=== PATIENT | male | born 1965 | race Caucasian/White ===

== ENCOUNTER 2017-03-04 23:59 | Inpatient (IN) ==
[2017-03-05] MEDS ORDERED: Naloxone 0.4 MG/ML INJ IVP ONE (00:20)
[2017-03-05] MEDS ORDERED: Ondansetron 4 MG/2 ML VIAL IVP PRN ×2 (00:35→00:51)
[2017-03-05] MEDS ORDERED: Ondansetron 4 MG/2 ML VIAL ONE (00:36)
[2017-03-05] MEDS ORDERED: Naloxone 0.4 MG/ML INJ IVP PRN (00:51)
[2017-03-05] MEDS ORDERED: *HR* Promethazine 25 MG/ML VIAL IVP PRN (00:51)
[2017-03-05] MEDS ORDERED: Ipratropium/Albuterol Neb 3 ML IH PRN (01:00)
[2017-03-05 01:49] LABS: Basophils % 0.3 %; Eosinophils % 0.1 %; Hematocrit 27.2 % (37.5-50.1); Hemoglobin 9.2 g/dL (12.9-16.9); Immature Granulocytes % 0.4 % (0-4); Immature Platelets 1.8 % (1.1-6.1); Lymphocytes # 1.4 K/mcL (0.6-4.6); Lymphocytes % 9.6 %; Mean Corpuscular HGB Conc 33.8 g/dL (31.6-35.5); Mean Corpuscular Hemoglobin 28.8 pg (28.0-33.3); Mean Platelet Volume 8.8 fL (9.4-12.4); Monocytes # 1.3 K/mcL (0.0-1.3); Monocytes % 8.4 %; Neutrophils # 12.1 K/mcL (1.6-8.9); Platelet Count 320 K/mcL (140-400); Red Cell Distribution Width 13.8 % (11.5-14.5); Segmented Neutrophils % 81.2 %
[2017-03-05 01:55] LABS: ABG Base Excess -8 mEq/L (-2 to 3); ABG HCO3 18 mEq/L (21-27); ABG Oxygen Saturation 88 % (95-98); ABG PCO2 34 mmHg (35-45); ABG PH 7.32 pH Units (7.32-7.45); ABG PO2 59 mmHg (85-104); ABG TCO2 19 mEq/L (20-26)
[2017-03-05 02:11] LABS: Calcium 8.6 mg/dL (8.6-10.3); Magnesium 1.9 mg/dL (1.6-2.6); Potassium 4.8 mEq/L (3.5-5.1)
--- NOTE | 2017-03-05 02:29 | Internal Med History&Physical ---
Date of Encounter: 03/05/17 Time of Encounter: 01:00 Assessment and Plan (1) Altered mental status Current visit: Yes Status: Acute Pt has AMS. Pt has positive urine screen to opioid and oxycodone. Pt respond to narcan, but shows some withdraw symptoms with narcan we give in our hospital. Pt has patent airway and can be wake up now. - Will place pt on close monitoring in ICU bed, possible intubation for airway protection if AMS is getting worse. - Pt move 4 limbs and denies headache when wake-up. - Check ammonia, TSH, and Vit B12 level as well. Qualifiers: Altered mental status type: disorientation Qualified Code(s): R41.0 - Disorientation, unspecified (2) GI bleed Current visit: Yes Status: Acute Pt has drop of Hgb with positive FOBT. Currently vitals stable. - Cont monitor vitals and H/H - NPO, IVF - Protonix drip - Consult surgery for possible scopes Qualifiers: GI bleed type/associated pathology: unspecified gastrointestinal hemorrhage type Qualified Code(s): K92.2 - Gastrointestinal hemorrhage, unspecified (3) DVT prophylaxis Current visit: Yes Status: Acute EPCD, no AC b/o GI bleed (4) Acute renal failure Current visit: No Status: Acute Cr level increased to 2.4 from baseline 0.8. Pt has N/V and diarrhea, consider possibly prerenal LUCILA. - Cont IVF, F/U renal function, avoid nephrotoxic medications. - US renal to r/o obstruction. - Pt is on Sanchez, monitor urine output. Qualifiers: Acute renal failure type: unspecified Qualified Code(s): N17.9 - Acute kidney failure, unspecified (5) Hyponatremia Current visit: No Status: Acute Sodium 124. Pt has psych hx on some psych meds. Most likely due to psych polydypsia. However, pt shows dehydration now, will cont 0.9NS iv. - Closely monitor sodium level, goal of correction is 8-10 mEq within first 24 hours. (6) Dehydration Current visit: No Status: Acute Cont IVF. (7) Opiate overdose Current visit: No Status: Acute Closely monitor pt, at this point pt can be wake up. Hold intubation. Qualifiers: Encounter type: initial encounter Injury intent: accidental or unintentional Qualified Code(s): T40.601A - Poisoning by unspecified narcotics , accidental (unintentional), initial encounter (8) Nausea & vomiting Current visit: Yes Status: Acute Etiology undetermined. Abd exam is benign. Will cont symptomatic treatment. Qualifiers: Vomiting type: unspecified Vomiting Intractability: unspecified Qualified Code(s): R11.2 - Nausea with vomiting, unspecified Internal Medicine - H&P: HPI Chief complaint: Altered mental status Admitted From: Home Plans for Post Hospital Care: Home History of present illness: Mr. Velázquez is a 52 year old male with unclear PMH present to [facility] for drowsy and AMS. Pt was found positive with opioid and oxycodone. He was treated with Narcan x 3 in [facility], Pt is more awake alert after treatment but get to drowsy again laterly. When I saw pt in our floor, he can be wake up by verbal stimulation, denies headache, chest pain, can move four limbs w/o obvious deficit. However, it is difficult to get more information from pt. Per [facility] documentation, pt has SOB, nausea, and vomiting, and diarrhea at home. He was also found low Hgb in ER, which is 9.5 and which was 13.0 in September 12. Pt was found LUCILA and FOBT positive. He was transferred to our hospital for further management. Past Med Surg Social Fam HX - Past Medical History Medical history: COPD, hyperlipidemia, hypertension, seizures, other Psychiatric history: anxiety, bipolar, depression - Past Surgical History Surgical History: orthopedic, other, other - Social History Smoking Status: Current some day smoker Smokeless Tobacco Status: Yes (snuff) Alcohol use: occasionally Drug use: prescription drug abuse - Family History Mother Living Status: Hx Family Cancer: Yes (lung) Internal Medicine - H&P: Meds ALPRAZolam [Xanax 0.5 MG Tablet] 1 mg PO QID 10/19/14 [History] Atorvastatin [Lipitor] 40 mg PO HS 10/19/14 [History] Diltiazem CD (24hr) [Cardizem CD] 300 mg PO DAILY 10/19/14 [History] [place] Carbonate ER [Lithobid] 600 mg PO BID 10/19/14 [History] OxyCODONE Immed Rel [Roxicodone 15 MG] 15 mg PO Q4HR 10/19/14 [History] Paroxetine [Paxil] 60 mg PO DAILY 10/19/14 [History] Tiotropium [Spiriva] 1 mcg AER DAILY 10/19/14 [History] Albuterol Sulfate [Proair Hfa] 1 puff IH PRN PRN 06/10/15 [History] BuPROPion SR (12 HR) [Wellbutrin SR] 300 mg PO HS 06/10/15 [History] Pantoprazole Sodium [Protonix] 40 mg PO QAM 06/10/15 [History] Lisinopril-HCTZ 20-12.5 [Prinzide 20-12.5] 1 tab PO DAILY 09/15/15 [History] Albuterol Sulfate [Albuterol Inhaler] 1 - 2 puff IH Q6HR PRN #1 hfa.aer.ad 03/02 [Rx] 3 Allergy/AdvReac Type Severity Reaction Status Date / Time cephalexin [From Keflex] Allergy Anaphylaxis Verified 03/02/16 16:30 Latex, Natural Rubber Allergy Hives Verified 03/02/16 16:30 All Systems PM: A 10-system review of systems was performed and is negative for pertinent findings except as documented above in the HPI. - Constitutional Vitals: Temp Pulse Resp BP Pulse Ox 98.6 F 82 18 142/84 90 03/05/17 01:49 03/05/17 02:00 03/05/17 02:00 03/05/17 02:00 03/05/17 02:00 General appearance: Present: A&O X 0, no acute distress Exam: Sleepy, can be waken up by verbal stimulation. - Head Head exam: Present: atraumatic, normocephalic - Eye Eye exam: Present: PERRL, conjuntiva pink, sclera anicteric Pupils: Present: PERRL - Neck Neck exam general surgery: Present: supple, trachea midline. Absent: lymphadenopathy - Respiratory Respiratory exam: Present: CTAB. Absent: accessory muscle use, rales, rhonchi, wheezes - Cardiovascular Cardiovascular exam: Present: RRR, +S1, +S2. Absent: diastolic murmur, gallop, rubs, systolic murmur - GI/Abdominal GI/Abdominal exam: Present: normal bowel sounds, soft, no peritoneal signs. Absent: distended, tenderness - Extremities Exam Extremities exam: Present: warm, radial pulses palpable and symmetrical. Absent : calf tenderness, cyanotic, pedal edema - Neurological Exam Neurological exam: Present: CN II-XII intact, no focal deficits. Absent: facial droop, speech deficit - Skin Skin exam: Present: dry, intact Internal Med - H&P Results - Labs CBC & Chem 7: 03/05/17 01:40 03/05/17 01:40 Labs: Short CBC 03/05/17 Range/Units 01:40 WBC 15.0 H (4.3-11.1) K/mcL Hgb 9.2 L (12.9-16.9) g/dL Hct 27.2 L (37.5-50.1) % Plt Count 320 (140-400) K/mcL Neutrophils # 12.1 H (1.6-8.9) K/mcL BMP 03/05/17 01:40 Sodium 124 L Potassium 4.8 Chloride 102 Carbon Dioxide 16 L BUN 32 H Creatinine 2.31 H Glucose 108 H Calcium 8.6 - ABG Interpretation ABG results: 03/05/17 01:51 ABG pH 7.32 ABG pCO2 34 L ABG pO2 59 L ABG HCO3 18 L ABG Total CO2 19 L ABG O2 Saturation 88 L ABG Base Excess -8 L - EKG Data -: EKG Interpreted by Myself EKG shows normal: sinus rhythm Rate: normal, tachycardia
[2017-03-05] MEDS: Pantoprazole 80 MG in 0.9 % Sodium Chloride 250 ML IVC SCH ×2 (02:45→14:33)
[2017-03-05] MEDS: 0.9 % Sodium Chloride 1,000 ML IVC SCH ×2 (02:45→10:35)
[2017-03-05] MEDS: Ipratropium/Albuterol Neb 3 ML IH SCH ×4 (04:10→21:43)
[2017-03-05 07:18] LABS: Hematocrit 27.8 % (37.5-50.1); Hemoglobin 9.3 g/dL (12.9-16.9)
[2017-03-05 09:13] LABS: Potassium 5.1 mEq/L (3.5-5.1)
--- NOTE | 2017-03-05 11:39 | Event Note ---
Date of Encounter: 03/05/17 Time of Encounter: 11:25 Patient is a 52y/o male who is transferred from [facility] for management of AMS and UGIB. Pt was further found to have acute renal failure, normal anion gap metabolic acidosis His mental status has improved compared to previous day. Easily arousable, AAO x 3 No recurrent episodes of acute bleeding reported. Pt was noted to have positive stool occult at [facility] with pt's history of dark tarry stools H&H low but acceptable Noted to have hyponatremia in addition to worsening of renal function Will hold all sedative agents at this time noted to have bicarb deficit of 6.56 amps will start on bicarb drip (3amp in D5W run at 100cc/hr) closely monitor Na levels, q8h, goal correction 6-8meq in 24 hours Closely monitor H&H q12h Surgery evaluation requested for positive stool occult. continue Protonix gtt at this time will start clear liquid diet Restarted pt's home medications labs and vitals reviewed.
--- NOTE | 2017-03-05 12:36 | General Surgery Consult Note ---
Date of Encounter: 03/05/17 Time of Encounter: 12:30 Assessment and Plan (1) Guaiac positive stools Current Visit: Yes Status: Acute The patient has a combination of mild anemia with guaiac positive stools. He has a clear indication for EGD and colonoscopy. I would prefer that his hyponatremia be fully treated and he be free of opioids prior to sedation and endoscopic evaluation of the GI tract. I will be glad to see him as an outpatient to arrange endoscopic evaluation. History of Present Illness Consult date: 03/05/17 Reason for consult: other History of present illness: The patient initially presented with mental status changes. He was positive for opioids and oxycodone by urine drug screen. He responded to Narcan. During evaluation today, the patient demonstrates hyperactivity and difficulty concentrating. He is alert and oriented times 3. It was noted that he had a hemoglobin of 9.2. He states that he has intermittent vomiting at home but no evidence of hematemesis. He has intermittent small volume rectal bleeding usually with visible blood on his toilet paper. There is no high-volume rectal bleeding with clots. There is no hematochezia or melena. He denies any blood loss area he is currently under therapy for hyponatremia and opioid use. I would recommend an outpatient EGD and colonoscopy after the patient has recovered and his hyponatremia has been successfully addressed. There is no indication for emergent endoscopic evaluation of the GI tract. Conscious sedation with hyponatremia may cause worsening mental status. Past Med Surg Social Fam HX - Past Medical History Medical history: COPD, hyperlipidemia, hypertension, seizures, other Psychiatric history: anxiety, bipolar, depression - Past Surgical History Surgical History: orthopedic, other, other - Social History Smoking Status: Current some day smoker Smokeless Tobacco Status: Yes (snuff) Alcohol use: occasionally Drug use: prescription drug abuse - Family History Mother Living Status: Hx Family Cancer: Yes (lung) Medications and Allergies ALPRAZolam [Xanax 0.5 MG Tablet] 1 mg PO BID PRN 10/19/14 [History] Atorvastatin [Lipitor] 40 mg PO HS 10/19/14 [History] Diltiazem CD (24hr) [Cardizem CD] 300 mg PO DAILY 10/19/14 [History] [place] Carbonate ER [Lithobid] 600 mg PO BID 10/19/14 [History] OxyCODONE Immed Rel [Roxicodone 15 MG] 15 mg PO Q4HR PRN 10/19/14 [History] Paroxetine [Paxil] 60 mg PO DAILY 10/19/14 [History] Tiotropium [Spiriva] 18 mcg IH DAILY 10/19/14 [History] Pantoprazole Sodium [Protonix] 40 mg PO QAM 06/10/15 [History] Lisinopril-HCTZ 20-12.5 [Prinzide 20-12.5] 1 tab PO DAILY 09/15/15 [History] Albuterol Sulfate [Albuterol Inhaler] 1 - 2 puff IH Q6HR PRN #1 hfa.aer.ad 03/02 [Rx] ALPRAZolam [Xanax 1 MG Tablet] 2 mg PO HS PRN 03/05/17 [History] Gabapentin [Neurontin] 800 mg PO TID 03/05/17 [History] LevETIRAcetam [Roweepra] 500 mg PO BID 03/05/17 [History] Tizanidine HCl [Tizanidine HCl] 4 mg PO BID PRN 03/05/17 [History] 3 Allergy/AdvReac Type Severity Reaction Status Date / Time cephalexin [From Keflex] Allergy Anaphylaxis Verified 03/02/16 16:30 Latex, Natural Rubber Allergy Hives Verified 03/02/16 16:30 Review of Systems All systems PM: A 10-system review of systems was performed and is negative for pertinent findings except as documented above in the HPI. General Surgery Exam Initial Vital Signs Pulse Ox 90 03/05/17 00:27 - General physical appearance well developed, well nourished, obese, other (Nervous hyperactive and fidgeting) - ENT normal pinna, normal nares, normal mucosa, no hearing loss, no congestion - Neck no masses, no bruits, trachea midline, no lymphadectomy, no venous distension - Respiratory normal expansion, normal respiratory effort, clear to percussion, clear to auscultation - Cardiovascular Cardiovascular exam: Present: RRR, tachycardia, no murmurs/rubs/gallops - Abdomen Abdomen general surgery: Present: bowel sounds present, soft, non tender - Neurologic Present: CN 2-12 grossly intact, normal coordination, normal sensation - Psychiatric Psychiatric general surgery: Present: appropriate, oriented to person, oriented to place, oriented to time, speech is normal, memory intact, other (Hyperactive , fidgeting, easily distracted) Exam Initial Vital Signs Pulse Ox 90 03/05/17 00:27 Results - Labs 03/05/17 07:07 03/05/17 08:51 Abnormal lab results WBC 15.0 K/mcL (4.3-11.1) H 03/05/17 01:40 RBC 3.20 M/mcL (4.19-5.50) L 03/05/17 01:40 Hgb 9.3 g/dL (12.9-16.9) L 03/05/17 07:07 Hct 27.8 % (37.5-50.1) L 03/05/17 07:07 MPV 8.8 fL (9.4-12.4) L 03/05/17 01:40 Neutrophils # 12.1 K/mcL (1.6-8.9) H 03/05/17 01:40 ABG pCO2 34 mmHg (35-45) L 03/05/17 01:51 ABG pO2 59 mmHg (85-104) L 03/05/17 01:51 ABG HCO3 18 mEq/L (21-27) L 03/05/17 01:51 ABG Total CO2 19 mEq/L (20-26) L 03/05/17 01:51 ABG O2 Saturation 88 % (95-98) L 03/05/17 01:51 ABG Base Excess -8 mEq/L (-2 to 3) L 03/05/17 01:51 Sodium 124 mEq/L (136-145) L 03/05/17 08:51 Carbon Dioxide 16 mEq/L (23-29) L 03/05/17 08:51 BUN 34 mg/dL (6-20) H 03/05/17 08:51 Creatinine 2.67 mg/dL (0.70-1.30) H 03/05/17 08:51 Est GFR ( Amer) 31 (> 60) L 03/05/17 08:51 Est GFR (Non-Af Amer) 25 (> 60) L 03/05/17 08:51 POC Glucose 111 (58-89) H 03/05/17 01:47 Calculated Osmolality 266 (280-300) L 03/05/17 08:51 Calcium 8.0 mg/dL (8.6-10.3) L 03/05/17 08:51 TSH 0.079 mcIU/mL (0.340-5.600) L 03/05/17 07:07 Diabetes panel 03/05/17 03/05/17 Range/Units 01:40 08:51 Sodium 124 L 124 L (136-145) mEq/L Potassium 4.8 5.1 (3.5-5.1) mEq/L Chloride 102 104 (98-107) mEq/L Carbon Dioxide 16 L 16 L (23-29) mEq/L BUN 32 H 34 H (6-20) mg/dL Creatinine 2.31 H 2.67 H (0.70-1.30) mg/dL Glucose 108 H 101 (70-105) mg/dL Calcium 8.6 8.0 L (8.6-10.3) mg/dL Thyroid panel 03/05/17 Range/Units 07:07 TSH 0.079 L (0.340-5.600) mcIU/mL Calcium panel 03/05/17 03/05/17 Range/Units 01:40 08:51 Calcium 8.6 8.0 L (8.6-10.3) mg/dL Pituitary panel 03/05/17 03/05/17 03/05/17 Range/Units 01:40 07:07 08:51 Sodium 124 L 124 L (136-145) mEq/L Potassium 4.8 5.1 (3.5-5.1) mEq/L Chloride 102 104 (98-107) mEq/L Carbon Dioxide 16 L 16 L (23-29) mEq/L BUN 32 H 34 H (6-20) mg/dL Creatinine 2.31 H 2.67 H (0.70-1.30) mg/dL Glucose 108 H 101 (70-105) mg/dL Calcium 8.6 8.0 L (8.6-10.3) mg/dL TSH 0.079 L (0.340-5.600) mcIU/mL Adrenal panel 03/05/17 03/05/17 Range/Units 01:40 08:51 Sodium 124 L 124 L (136-145) mEq/L Potassium 4.8 5.1 (3.5-5.1) mEq/L Chloride 102 104 (98-107) mEq/L Carbon Dioxide 16 L 16 L (23-29) mEq/L BUN 32 H 34 H (6-20) mg/dL Creatinine 2.31 H 2.67 H (0.70-1.30) mg/dL Glucose 108 H 101 (70-105) mg/dL Calcium 8.6 8.0 L (8.6-10.3) mg/dL All other labs normal. Consult Discharge Plan - Plan Referrals: Noris Mancuso, LISE [Primary Care Provider] -
[2017-03-05 13:32] LABS: Hematocrit 29.2 % (37.5-50.1); Hemoglobin 9.7 g/dL (12.9-16.9)
[2017-03-05] MEDS: Sodium Bicarbonate 150 MEQ in D5% in Water 1,000 ML IVC SCH (13:38)
[2017-03-05] MEDS: ALPRAZolam 0.5 MG TABLET PO PRN ×2 (15:40→22:07)
[2017-03-05] MEDS: *HR* OxyCODONE Immed Rel 15 MG TABLET PO PRN (15:40)
[2017-03-05 17:22] LABS: Basophils % 0.2 %; Eosinophils % 0.2 %; Hematocrit 27.3 % (37.5-50.1); Hemoglobin 9.2 g/dL (12.9-16.9); Immature Granulocytes % 0.3 % (0-4); Lymphocytes # 2.1 K/mcL (0.6-4.6); Lymphocytes % 13.9 %; Mean Corpuscular HGB Conc 33.7 g/dL (31.6-35.5); Mean Corpuscular Hemoglobin 28.7 pg (28.0-33.3); Mean Platelet Volume 9.2 fL (9.4-12.4); Monocytes # 1.9 K/mcL (0.0-1.3); Monocytes % 12.6 %; Neutrophils # 10.8 K/mcL (1.6-8.9); Platelet Count 276 K/mcL (140-400); Red Blood Count 3.21 M/mcL (4.19-5.50); Red Cell Distribution Width 13.7 % (11.5-14.5); Segmented Neutrophils % 72.8 %
[2017-03-05 17:35] LABS: Calcium 7.8 mg/dL (8.6-10.3); Potassium 4.5 mEq/L (3.5-5.1)
[2017-03-05] MEDS: Pantoprazole 40 MG VIAL IVP SCH (18:36)
[2017-03-05] MEDS: levETIRAcetam 250 MG TABLET PO SCH (22:07)
[2017-03-05] MEDS: Lithium Carbonate ER 300 MG TABLET.ER PO SCH (22:08)
[2017-03-05] MEDS ORDERED: *HR* LORazepam 2 MG/ML VIAL IVP ONE ×2 (22:48→23:24)
[2017-03-05] MEDS ORDERED: *HR* LORazepam 2 MG/ML VIAL ONE (23:27)
[2017-03-05 23:35] LABS: ABG Base Excess -6 mEq/L (-2 to 3); ABG HCO3 19 mEq/L (21-27); ABG Oxygen Saturation 93 % (95-98); ABG PCO2 31 mmHg (35-45); ABG PH 7.39 pH Units (7.32-7.45); ABG PO2 68 mmHg (85-104); ABG TCO2 20 mEq/L (20-26)
[2017-03-05] MEDS: Dexmedetomidine HCl 400 MCG/100 ML MLS IVC SCH (23:50)
[2017-03-06] MEDS ORDERED: *HR* Morphine 2 MG/ML SYRINGE ONE ×2 (00:04→00:17)
[2017-03-06] MEDS ORDERED: *HR* Morphine 2 MG/ML SYRINGE IVP PRN (00:07)
[2017-03-06] MEDS ORDERED: Acetaminophen IV 1,000 MG/100 ML INFUS..BTL IVPB ONE (00:07)
[2017-03-06] MEDS ORDERED: *HR* Morphine 2 MG/ML SYRINGE IVP ONE (00:43)
[2017-03-06] MEDS: FentaNYL (PF) 1,000 MCG in 0.9 % Sodium Chloride 80 ML IVC SCH ×3 (00:55→19:03)
--- NOTE | 2017-03-06 00:59 | Event Note ---
Date of Encounter: 03/06/17 Time of Encounter: 12:00 Pt is very agitated, and try to remove his IV and singh. Pt has elevated HR and BP. Pt seems having hx of opioid independence and withdraw was considered. He was given ativan 1 mg x 3 and morphine 2mg iv x 2 but still cannot calm down. Pt seems has sleep apnea and very dificult to maintain patent airway if give further sedative or opioid. Finally we decide to intubate pt in order to give higher dose sedation and protect airway. Pt was intubated on propofol 100mg, rocuronium 50mg, versed 5mg. Chest wall move well on ventilation and breath sound heard b/l s/p intubation. Will order CXR to confirm the position. Place pt on propofol and fentenyl drip for sedation. Cont closely monitor pt. Tried to inform family by RN but cannot get through. Will consult motor vehicle examiner for further management.
[2017-03-06] MEDS: Sodium Bicarbonate 150 MEQ in D5% in Water 1,000 ML IVC SCH ×2 (01:30→13:56)
[2017-03-06] MEDS: Levofloxacin 750 MG/150 ML 750 MG/150 ML BAG IVPB SCH (02:24)
[2017-03-06 02:39] LABS: Basophils % 0.1 %; Eosinophils % 0.1 %; Hematocrit 25.7 % (37.5-50.1); Hemoglobin 8.7 g/dL (12.9-16.9); Immature Granulocytes % 0.6 % (0-4); Lymphocytes # 0.8 K/mcL (0.6-4.6); Lymphocytes % 5.1 %; Mean Corpuscular HGB Conc 33.9 g/dL (31.6-35.5); Mean Corpuscular Hemoglobin 28.7 pg (28.0-33.3); Mean Corpuscular Volume 84.8 fL (83.0-100.0); Mean Platelet Volume 9.2 fL (9.4-12.4); Monocytes # 1.5 K/mcL (0.0-1.3); Monocytes % 9.3 %; Neutrophils # 13.9 K/mcL (1.6-8.9); Platelet Count 262 K/mcL (140-400); Red Blood Count 3.03 M/mcL (4.19-5.50); Red Cell Distribution Width 13.8 % (11.5-14.5); Segmented Neutrophils % 84.8 %
[2017-03-06 02:52] LABS: Calcium 7.4 mg/dL (8.6-10.3); Magnesium 1.7 mg/dL (1.6-2.6); Phosphorous 5.3 mg/dL (2.7-4.5); Potassium 4.7 mEq/L (3.5-5.1)
[2017-03-06] MEDS: Ipratropium/Albuterol Neb 3 ML IH SCH ×4 (04:24→22:25)
[2017-03-06] MEDS: Pantoprazole 40 MG VIAL IVP SCH ×2 (05:13→18:15)
--- NOTE | 2017-03-06 07:30 | Pulmonology Consult Note ---
<Chandler Bobby - Last Filed: 03/06/17 11:38> Date of Encounter: 03/06/17 Time of Encounter: 07:30 Assessment and Plan (1) Acute respiratory failure Current Visit: Yes Status: Acute Patient developed acute respiratory failure and altered mental status requiring intubation and mechanical ventilation. Chest x-ray demonstrates bilateral pulmonary edema. Specific cause unknown patient does have a history of diastolic heart failure but there is also a risk that this could be alveolar hemorrhage. Plan: - Continue mechanical ventilation with sedation - Chest CT for further evaluation, may require bronchoscopy - We will hold off and diuresis until further renal evaluation - 5% albumin IV once - Treatment of CPAP with Ceftriaxone and Levaquin. Qualifiers: Qualified Code(s): J96.00 - Acute respiratory failure, unspecified whether with hypoxia or hypercapnia (2) Pneumonia Current Visit: Yes Status: Acute There is identification of left lower lobe pneumonia prior to pulmonary edema. - Patient was on IV Levaquin, ceftriaxone added today - Continue 7 days of treatment. Qualifiers: Qualified Code(s): J18.9 - Pneumonia, unspecified organism (3) Diastolic heart failure Current Visit: Yes Status: Acute Known history of diastolic heart failure with ejection fraction of 65% in 2016. - Currently has bilateral pulmonary edema with normal cardiac silhouette on chest x-ray, will repeat echocardiogram - Troponin times one nonsignificant - BNP 424 Plan: - May require diuresis after renal function evaluated. Qualifiers: Qualified Code(s): I50.30 - Unspecified diastolic (congestive) heart failure (4) Acute renal failure Current Visit: No Status: Acute Acute kidney injury, previous renal function was normal. Suspected prerenal, considering differential diagnosis of pulmonary renal syndrome, immunologic such as Radha's or MPA, worsening renal function may also be due to RTA - At this time for urine production with sediment in the tube. Plan: - Urine sodium, plasma sodium - Urine creatinine, plasma creatinine - Strict intake and output monitoring - Uric acid - Nephrology consult - 5% albumin once, 500 mL bolus normal saline Qualifiers: Acute renal failure type: unspecified Qualified Code(s): N17.9 - Acute kidney failure, unspecified (5) Hyponatremia Current Visit: No Status: Acute Patient has a sodium of 122, consider hypervolemic hyponatremic cause, cannot rule out sodium wasting. Hyponatremia workup as listed above and acute kidney injury. - Nephrology consult (6) Opiate overdose Current Visit: No Status: Acute Patient with opiate overdose, nonintentional. Patient has stable prescribing history of opiates and gabapentin. All have been held. Qualifiers: Encounter type: initial encounter Injury intent: accidental or unintentional Qualified Code(s): T40.601A - Poisoning by unspecified narcotics , accidental (unintentional), initial encounter (7) Anemia Current Visit: No Status: Acute Patient demonstrates anemia suspected acute blood loss anemia. Suspected GI source but there is also risk for alveolar hemorrhage and renal loss. - Hold all anticoagulation - Monitor closely - Replace PRBC if hemoglobin less than 7.0 Qualifiers: Anemia type: unspecified type Qualified Code(s): D64.9 - Anemia, unspecified (8) GI bleed Current Visit: Yes Status: Acute FOBT positive, patient has anemia. Significant colonoscopy history. Seen by general surgery who recommended endoscopy and colonoscopy by unstable at this time. Qualifiers: GI bleed type/associated pathology: unspecified gastrointestinal hemorrhage type Qualified Code(s): K92.2 - Gastrointestinal hemorrhage, unspecified (9) DVT prophylaxis Current Visit: Yes Status: Acute SCDs History of Present Illness Consult date: 03/06/17 Requesting physician: Arlet Quinn Reason for consult: dyspnea, hypoxemia Chief complaint: ARF History of present illness: Mr. Velázquez is a 52 year old male with unclear PMH present to [place] [facility] for drowsiness and AMS. Pt was found positive with opioid and oxycodone and he was treated with Narcan x 3 in [place] [facility]. He demonstrated some improvement in his mental status but continued to be drowsy. Also the emergency department he was found to have a hemoglobin around 9.5, FOBT positive and had acute kidney injury. He is admitted to the medical floor and was stable throughout the day. He was treated for acute kidney injury, hyponatremia, anemia, and bicarbonate deficiency. Mr. Velázquez was seen by general surgery who recommended EGD and colonoscopy but preferred that he was a little more stable with correction of his hyponatremia and free of sedation prior to further interventions. Patient became more altered overnight demonstrated agitation chest x-ray demonstrating left lower lobe pneumonia the patient became unstable requiring intubation on in the middle the night. He is placed on mechanical ventilation the ICU. Repeat chest x-ray demonstrates bilateral pulmonary edema. Patient has worsening of renal function and slight drop in hemoglobin to 8.7. Past Med Surg Social Fam HX - Past Medical History Medical history: COPD, hyperlipidemia, hypertension, seizures, other Psychiatric history: anxiety, bipolar, depression - Past Surgical History Surgical History: orthopedic, other, other - Social History Smoking Status: Current some day smoker Smokeless Tobacco Status: Yes (snuff) Alcohol use: occasionally Drug use: prescription drug abuse - Family History Mother Living Status: Hx Family Cancer: Yes (lung) Medications and Allergies ALPRAZolam [Xanax 0.5 MG Tablet] 1 mg PO BID PRN 10/19/14 [History] Atorvastatin [Lipitor] 40 mg PO HS 10/19/14 [History] Diltiazem CD (24hr) [Cardizem CD] 300 mg PO DAILY 10/19/14 [History] [place] Carbonate ER [Lithobid] 600 mg PO BID 10/19/14 [History] OxyCODONE Immed Rel [Roxicodone 15 MG] 15 mg PO Q4HR PRN 10/19/14 [History] Paroxetine [Paxil] 60 mg PO DAILY 10/19/14 [History] Tiotropium [Spiriva] 18 mcg IH DAILY 10/19/14 [History] Pantoprazole Sodium [Protonix] 40 mg PO QAM 06/10/15 [History] Lisinopril-HCTZ 20-12.5 [Prinzide 20-12.5] 1 tab PO DAILY 09/15/15 [History] Albuterol Sulfate [Albuterol Inhaler] 1 - 2 puff IH Q6HR PRN #1 hfa.aer.ad 03/02 [Rx] ALPRAZolam [Xanax 1 MG Tablet] 2 mg PO HS PRN 03/05/17 [History] Gabapentin [Neurontin] 800 mg PO TID 03/05/17 [History] LevETIRAcetam [Roweepra] 500 mg PO BID 03/05/17 [History] Tizanidine HCl [Tizanidine HCl] 4 mg PO BID PRN 03/05/17 [History] 3 Allergy/AdvReac Type Severity Reaction Status Date / Time cephalexin [From Keflex] Allergy Anaphylaxis Verified 03/02/16 16:30 Latex, Natural Rubber Allergy Hives Verified 01/04/17 16:30 ROS unobtainable: due to endotracheal tube, due to mental status All Systems: A 10-system review of systems was performed and is negative for pertinent findings except as documented above in the HPI. Physical Examination Vital Signs: Vital Signs, Last 4 Hours Temp Pulse Resp BP Pulse Ox 03/06/17 06:24 18 120/82 99 03/06/17 06:00 96 18 129/84 99 03/06/17 05:00 96 17 125/76 99 03/06/17 04:48 99.0 F 03/06/17 04:25 16 132/84 98 03/06/17 04:19 96 03/06/17 04:00 96 20 134/87 98 General appearance: no acute distress, other (Intubated, sedated require mechanical ventilation) Eyes: nonicteric ENT: oropharynx moist Neck: supple Effort: other (Correlate with mechanical ventilation) Auscultation: bilateral: rhonchi Cardiovascular: regular rate and rhythm Gastrointestinal: normoactive bowel sounds, soft Extremities: no cyanosis, no edema, no clubbing, pink and warm Musculoskeletal: no deformities Ventilator Settings Ventilator Settings: Ventilator Settings, Last 8 Hours Ventilator Mode VC+ Ventilator Mode VC+ Ventilator Mode VC+ Ventilator Mode VC+ Ventilator Mode VC+ Ventilator Mode VC+ Ventilator Mode VC+ Ventilator Mode VC+ Ventilator Mode VC+ Ventilator Mode VC+ Ventilator Tidal Volume 600 Setting Ventilator Tidal Volume 600 Setting Ventilator Tidal Volume 600 Setting Ventilator Tidal Volume 600 Setting Ventilator Tidal Volume 600 Setting Ventilator Tidal Volume 600 Setting Ventilator Tidal Volume 600 Setting Ventilator Tidal Volume 600 Setting Ventilator Tidal Volume 600 Setting Ventilator Tidal Volume 550 Setting Ventilator Respiratory Rate 14 Setting Ventilator Respiratory Rate 14 Setting Ventilator Respiratory Rate 14 Setting Ventilator Respiratory Rate 14 Setting Ventilator Respiratory Rate 14 Setting Ventilator Respiratory Rate 14 Setting Ventilator Respiratory Rate 14 Setting Ventilator Respiratory Rate 14 Setting Ventilator Respiratory Rate 14 Setting Ventilator Respiratory Rate 14 Setting Actual Respiratory Rate 18 Actual Respiratory Rate 18 Actual Respiratory Rate 17 Actual Respiratory Rate 16 Actual Respiratory Rate 20 Actual Respiratory Rate 19 Actual Respiratory Rate 20 Actual Respiratory Rate 20 Actual Respiratory Rate 21 Actual Respiratory Rate 14 Positive End Expiratory 5 Pressure Positive End Expiratory 5 Pressure Positive End Expiratory 5 Pressure Positive End Expiratory 5 Pressure Positive End Expiratory 5 Pressure Positive End Expiratory 5 Pressure Positive End Expiratory 5 Pressure Positive End Expiratory 5 Pressure Positive End Expiratory 5 Pressure Positive End Expiratory 5 Pressure Peak Inspiratory Airway 18 Pressure Peak Inspiratory Airway 17 Pressure Peak Inspiratory Airway 17 Pressure Peak Inspiratory Airway 17 Pressure Peak Inspiratory Airway 17 Pressure Peak Inspiratory Airway 18 Pressure Peak Inspiratory Airway 18 Pressure Peak Inspiratory Airway 18 Pressure Peak Inspiratory Airway 25 Pressure Peak Inspiratory Airway 34 Pressure Results - Laboratory Findings CBC and BMP: 03/06/17 02:25 03/06/17 07:38 ABG ABG pH 7.39 pH Units (7.32-7.45) 03/05/17 23:30 ABG pCO2 31 mmHg (35-45) L 03/05/17 23:30 ABG pO2 68 mmHg (85-104) L 03/05/17 23:30 ABG O2 Saturation 93 % (95-98) L 03/05/17 23:30 Abnormal lab findings: Abnormal lab results WBC 16.4 K/mcL (4.3-11.1) H 03/06/17 02:25 RBC 3.03 M/mcL (4.19-5.50) L 03/06/17 02:25 Hgb 8.7 g/dL (12.9-16.9) L 03/06/17 02:25 Hct 25.7 % (37.5-50.1) L 03/06/17 02:25 MPV 9.2 fL (9.4-12.4) L 03/06/17 02:25 Neutrophils # 13.9 K/mcL (1.6-8.9) H 03/06/17 02:25 Monocytes # 1.5 K/mcL (0.0-1.3) H 03/06/17 02:25 ABG pCO2 31 mmHg (35-45) L 03/05/17 23:30 ABG pO2 68 mmHg (85-104) L 03/05/17 23:30 ABG HCO3 19 mEq/L (21-27) L 03/05/17 23:30 ABG O2 Saturation 93 % (95-98) L 03/05/17 23:30 ABG Base Excess -6 mEq/L (-2 to 3) L 03/05/17 23:30 Sodium 121 mEq/L (136-145) L 03/06/17 02:25 Carbon Dioxide 19 mEq/L (23-29) L 03/06/17 02:25 BUN 40 mg/dL (6-20) H 03/06/17 02:25 Creatinine 2.69 mg/dL (0.70-1.30) H 03/06/17 02:25 Est GFR ( Amer) 31 (> 60) L 03/06/17 02:25 Est GFR (Non-Af Amer) 25 (> 60) L 03/06/17 02:25 Glucose 130 mg/dL (70-105) H 03/06/17 02:25 POC Glucose 119 (58-89) H 03/05/17 23:51 Calculated Osmolality 264 (280-300) L 03/06/17 02:25 Calcium 7.4 mg/dL (8.6-10.3) L 03/06/17 02:25 Phosphorus 5.3 mg/dL (2.7-4.5) H 03/06/17 02:25 TSH 0.079 mcIU/mL (0.340-5.600) L 03/05/17 07:07 - Clinical Findings Intake & Output: Intake & Output 03/05/17 03/05/17 03/06/17 15:59 23:59 07:59 Intake Total 1645 / 1645 480 / 480 1364 / 1364 Output Total 300 / 300 375 / 375 350 / 350 Balance 1345 / 1345 105 / 105 1014 / 1014 Weight 102.5 kg Consult Discharge Plan - Plan Referrals: Noris Mancuso, MUSEUM PREPARATOR [Primary Care Provider] - <Ab Christensen S - Last Filed: 03/06/17 21:56> Date of Encounter: 03/06/17 All Systems: A 10-system review of systems was performed and is negative for pertinent findings except as documented above in the HPI. Physical Examination Vital Signs: Vital Signs, Last 4 Hours Temp Pulse Resp BP Pulse Ox 03/06/17 17:00 105 22 121/77 96 03/06/17 16:18 24 97 03/06/17 16:00 99.3 F 105 27 141/81 94 03/06/17 15:04 27 97 03/06/17 15:00 98 22 143/95 98 03/06/17 14:00 96 20 136/85 97 Ventilator Settings Ventilator Settings: Ventilator Settings, Last 8 Hours Ventilator Mode VC+ Ventilator Mode VC+ Ventilator Mode VC+ Ventilator Mode VC+ Ventilator Mode VC+ Ventilator Mode VC+ Ventilator Mode VC+ Ventilator Mode VC+ Ventilator Mode VC+ Ventilator Mode VC+ Ventilator Mode VC+ Ventilator Tidal Volume 450 Setting Ventilator Tidal Volume 450 Setting Ventilator Tidal Volume 450 Setting Ventilator Tidal Volume 450 Setting Ventilator Tidal Volume 450 Setting Ventilator Tidal Volume 450 Setting Ventilator Tidal Volume 450 Setting Ventilator Tidal Volume 450 Setting Ventilator Tidal Volume 450 Setting Ventilator Tidal Volume 450 Setting Ventilator Tidal Volume 450 Setting Ventilator Respiratory Rate 18 Setting Ventilator Respiratory Rate 18 Setting Ventilator Respiratory Rate 18 Setting Ventilator Respiratory Rate 18 Setting Ventilator Respiratory Rate 18 Setting Ventilator Respiratory Rate 18 Setting Ventilator Respiratory Rate 18 Setting Ventilator Respiratory Rate 18 Setting Ventilator Respiratory Rate 18 Setting Ventilator Respiratory Rate 18 Setting Ventilator Respiratory Rate 18 Setting Actual Respiratory Rate 22 Actual Respiratory Rate 21 Actual Respiratory Rate 27 Actual Respiratory Rate 25 Actual Respiratory Rate 22 Actual Respiratory Rate 20 Actual Respiratory Rate 26 Actual Respiratory Rate 28 Actual Respiratory Rate 27 Actual Respiratory Rate 24 Actual Respiratory Rate 25 Positive End Expiratory 5 Pressure Positive End Expiratory 5 Pressure Positive End Expiratory 10 Pressure Positive End Expiratory 5 Pressure Positive End Expiratory 5 Pressure Positive End Expiratory 5 Pressure Positive End Expiratory 5 Pressure Positive End Expiratory 5 Pressure Positive End Expiratory 5 Pressure Positive End Expiratory 5 Pressure Positive End Expiratory 5 Pressure Peak Inspiratory Airway 16 Pressure Peak Inspiratory Airway 23 Pressure Peak Inspiratory Airway 27 Pressure Peak Inspiratory Airway 20 Pressure Peak Inspiratory Airway 20 Pressure Peak Inspiratory Airway 33 Pressure Peak Inspiratory Airway 13 Pressure Peak Inspiratory Airway 18 Pressure Peak Inspiratory Airway 17 Pressure Peak Inspiratory Airway 11 Pressure Peak Inspiratory Airway 30 Pressure Results - Laboratory Findings CBC and BMP: 03/06/17 02:25 03/06/17 07:38 ABG ABG pH 7.39 pH Units (7.32-7.45) 03/05/17 23:30 ABG pCO2 31 mmHg (35-45) L 03/05/17 23:30 ABG pO2 68 mmHg (85-104) L 03/05/17 23:30 ABG O2 Saturation 93 % (95-98) L 03/05/17 23:30 Abnormal lab findings: Abnormal lab results WBC 16.4 K/mcL (4.3-11.1) H 03/06/17 02:25 RBC 3.03 M/mcL (4.19-5.50) L 03/06/17 02:25 Hgb 8.7 g/dL (12.9-16.9) L 03/06/17 02:25 Hct 25.7 % (37.5-50.1) L 03/06/17 02:25 MPV 9.2 fL (9.4-12.4) L 03/06/17 02:25 Neutrophils # 13.9 K/mcL (1.6-8.9) H 03/06/17 02:25 Monocytes # 1.5 K/mcL (0.0-1.3) H 03/06/17 02:25 ABG pCO2 31 mmHg (35-45) L 03/05/17 23:30 ABG pO2 68 mmHg (85-104) L 03/05/17 23:30 ABG HCO3 19 mEq/L (21-27) L 03/05/17 23:30 ABG O2 Saturation 93 % (95-98) L 03/05/17 23:30 ABG Base Excess -6 mEq/L (-2 to 3) L 03/05/17 23:30 Sodium 122 mEq/L (136-145) L 03/06/17 07:38 Carbon Dioxide 19 mEq/L (23-29) L 03/06/17 02:25 BUN 40 mg/dL (6-20) H 03/06/17 02:25 Creatinine 3.00 mg/dL (0.70-1.30) H 03/06/17 07:38 Est GFR ( Amer) 27 (> 60) L 03/06/17 07:38 Est GFR (Non-Af Amer) 22 (> 60) L 03/06/17 07:38 Glucose 130 mg/dL (70-105) H 03/06/17 02:25 POC Glucose 113 (58-89) H 03/06/17 11:23 Serum Osmolality 276 mOsm/kg (280-300) L 03/06/17 07:38 Calculated Osmolality 264 (280-300) L 03/06/17 02:25 Calcium 7.4 mg/dL (8.6-10.3) L 03/06/17 02:25 Phosphorus 5.3 mg/dL (2.7-4.5) H 03/06/17 02:25 AST 10 Units/L (13-39) L 03/06/17 07:38 B-Natriuretic Peptide 424 pg/mL (Less than 100) H 03/06/17 07:38 Serum Total Protein 5.5 g/dL (6.4-8.9) L 03/06/17 07:38 Albumin 2.1 g/dL (3.5-5.7) L 03/06/17 07:38 Albumin/Globulin Ratio 0.6 (1.1-2.2) L 03/06/17 07:38 TSH 0.079 mcIU/mL (0.340-5.600) L 03/05/17 07:07 Free T3 2.37 pg/mL (2.50-3.90) L 03/06/17 07:38 Urine Osmolality 253 mOsm/kg (300-1090) L 03/06/17 11:03 - Microbiology Findings Microbiology Findings: Microbiology, Last 48 Hours 03/06/17 14:50 Sputum Culture - Preliminary Sputum - Clinical Findings Intake & Output: Intake & Output 03/06/17 03/06/17 03/06/17 07:59 15:59 23:59 Intake Total 1514 / 1514 1810 / 1810 Output Total 350 / 350 100 / 100 Balance 1164 / 1164 1710 / 1710 Weight 102.5 kg - Attending Attestation I saw the patient with the resident agree with History and Physical exam findings. Labs and Radiology were reviewed Ventilator data were reviewed APPAREL STOCK CHECKER: Patient is intubated and sedated the reason he might be altered before intubation because of neurontin on board and opioids . Toxic and Metabolic encephalopathy NECK : No JVD appreciated Pulmonary : Patient has acute respiratory failure bilateral pneumonia vs Alveolar hemorrhage complicated by diastolic heart failure . During bronchoscopy patient desaturated able to do BAL from RAMANDEEP with some bleeding there but there was no evidence of endobronchial lesions will follow cultures Cardiac : Hemodynamically stable , diastolic heart failure will hold of diuresis because of worsening renal function Nutrition/GI: Will start on tube feeds Renal : LUCILA - Nephrology consult ATN Vs Glomerulonephritis in setting of alveolar hemorrhage work up pending appreciate nephrology consultt Heme onc : No acute issues ID : Bilateral bibasilar pneumonia flu work up pending if not getting better will change to broad spectrum antibiotics Musculo skeletal / skin issues ; No acute issues Disposition : Critically ill Code status: Full Code Family/POA: Family is updated . Spent 45 minutes of critical care time in medical decision making in maintaining vital organ function and preventing further decline .
[2017-03-06] MEDS ORDERED: *HR* Rocuronium Bromide 50 MG/5 ML VIAL IVC ONE (07:51)
[2017-03-06] MEDS ORDERED: *HR* Midazolam HCl 5 MG/5 ML VIAL IVP ONE (07:51)
[2017-03-06 08:03] LABS: Uric Acid 7.3 mg/dL (2.3-7.6)
[2017-03-06] MEDS ORDERED: Lacri-Lube 3.5 GM TUBE BOTH EYES PRN (08:23)
[2017-03-06] MEDS ORDERED: 0.9 % Sodium Chloride 500 ML IVC ONE (08:42)
[2017-03-06] MEDS: levETIRAcetam 250 MG TABLET PO SCH ×2 (08:48→20:52)
[2017-03-06] MEDS: Lithium Carbonate ER 300 MG TABLET.ER PO SCH ×2 (08:48→20:53)
[2017-03-06] MEDS: Diltiazem CD (24hr) 300 MG CAPSULE PO SCH (08:48)
[2017-03-06] MEDS ORDERED: Lisinopril-HCTZ 20-12.5mg TABLET PO SCH (09:00)
[2017-03-06] MEDS: Chlorhexidine Rinse 15 ML MOUTHWASH MM SCH ×2 (09:14→20:52)
[2017-03-06] MEDS: cefTRIAXone 1,000 MG in Water for inj. (sterile) 20 ML 10 ML IVP SCH (09:15)
[2017-03-06 11:09] LABS: Albumin 2.1 g/dL (3.5-5.7); Albumin/Globulin Ratio 0.6 (1.1-2.2); Bilirubin,Indirect 0.3 mg/dL (0.0-1.2); Bilirubin,Total 0.3 mg/dL (0.3-1.0); Globulin 3.4 g/dL (2.4-3.5); Total Protein 5.5 g/dL (6.4-8.9)
[2017-03-06 12:21] LABS: Sodium, Urine 23.4 mEq/L
[2017-03-06 13:04] LABS: Triiodothyronine (T3) Free 2.37 pg/mL (2.50-3.90)
[2017-03-06] MEDS: Lacri-Lube 3.5 GM TUBE BOTH EYES SCH ×3 (14:52→20:53)
--- NOTE | 2017-03-06 15:35 | Nephrology Consult Note ---
Date of Encounter: 03/06/17 Time of Encounter: 15:20 Assessment and Plan (1) Acute renal failure Current Visit: No Status: Acute LUCILA versus GN in setting Respiratory failure, PNA, pulmonary hemorrhage. Hyponatremia may be related to psche medications. Normal anion gap metabolic acidosis, on bicarb drip. Renal workup started. Renal US r/o obstructive uropathy. Avoid nephrotoxins. Continue to monitor. Qualifiers: Acute renal failure type: unspecified Qualified Code(s): N17.9 - Acute kidney failure, unspecified History of Present Illness - Reason for Consult Acute Kidney Injury - History of Present Illness Mr. Velázquez is a 52 year old male who was transferred from [facility] with AMS. Positive opioid, responsive to narcan. Other PMH-COPD, hyperlipidemia, hypertension, seizures, anxiety, bipolar, depression He has since developed acute respiratory failure, requiring intubation, mechanical ventilation. sedated. HPI obtained from prior notes. In interim found to be anemic, FOBT, Hgb 9.5, today 8.7 and LUCILA. Creat initially 2.43 climbing today to 3.00. His prior renal fct normal. Oliguric, 350cc since midnite, 50cc of that since 0800. Has normal anion gap metabolic acidosis on Bicarb drip. Sodium 122. Does have psyche history, on psyche medications. CXR shows bilateral PNA. On Levaquin and Ceftriaxone. There is concern for pulmonary hemorrhage and patient currently going under bedside bronchoscopy. Past Med Surg Social Fam HX - Past Medical History Medical history: COPD, hyperlipidemia, hypertension, seizures, other Psychiatric history: anxiety, bipolar, depression - Past Surgical History Surgical History: orthopedic, other, other - Social History Smoking Status: Current some day smoker Smokeless Tobacco Status: Yes (snuff) Alcohol use: occasionally Drug use: prescription drug abuse - Family History Mother Living Status: Hx Family Cancer: Yes (lung) Medications and Allergies ALPRAZolam [Xanax 0.5 MG Tablet] 1 mg PO BID PRN 10/19/14 [History] Atorvastatin [Lipitor] 40 mg PO HS 10/19/14 [History] Diltiazem CD (24hr) [Cardizem CD] 300 mg PO DAILY 10/19/14 [History] [place] Carbonate ER [Lithobid] 600 mg PO BID 10/19/14 [History] OxyCODONE Immed Rel [Roxicodone 15 MG] 15 mg PO Q4HR PRN 10/19/14 [History] Paroxetine [Paxil] 60 mg PO DAILY 10/19/14 [History] Tiotropium [Spiriva] 18 mcg IH DAILY 10/19/14 [History] Pantoprazole Sodium [Protonix] 40 mg PO QAM 06/10/15 [History] Lisinopril-HCTZ 20-12.5 [Prinzide 20-12.5] 1 tab PO DAILY 09/15/15 [History] Albuterol Sulfate [Albuterol Inhaler] 1 - 2 puff IH Q6HR PRN #1 hfa.aer.ad 03/02 [Rx] ALPRAZolam [Xanax 1 MG Tablet] 2 mg PO HS PRN 03/05/17 [History] Gabapentin [Neurontin] 800 mg PO TID 03/05/17 [History] LevETIRAcetam [Roweepra] 500 mg PO BID 03/05/17 [History] Tizanidine HCl [Tizanidine HCl] 4 mg PO BID PRN 03/05/17 [History] 3 Allergy/AdvReac Type Severity Reaction Status Date / Time cephalexin [From Keflex] Allergy Anaphylaxis Verified 03/02/16 16:30 Latex, Natural Rubber Allergy Hives Verified 03/02/16 16:30 Exam - Vital Signs Vital signs: Initial Vital Signs Pulse Ox 90 03/05/17 00:27 Vital Signs - Last 8 Hours Temp Pulse Resp BP Pulse Ox 03/06/17 15:04 27 97 03/06/17 15:00 98 22 143/95 98 03/06/17 14:00 96 20 136/85 97 03/06/17 13:00 101 26 151/97 96 03/06/17 12:00 98.0 F 101 26 151/97 96 03/06/17 11:30 25 98 03/06/17 11:00 100 24 125/71 98 03/06/17 10:00 101 25 133/83 99 03/06/17 09:45 25 99 03/06/17 09:00 96 28 134/86 99 03/06/17 08:11 23 99 03/06/17 08:00 99 28 134/86 99 03/06/17 07:48 98.4 F Intake and Output 03/05/17 03/06/17 03/06/17 23:59 07:59 15:59 Intake Total 480 / 480 1514 / 1514 18090 Output Total 375 / 375 350 / 350 Balance 105 / 105 1164 / 1164 1809 Intake: IV Fluids 1514 / 1514 1809 0.9 % Sodium Chloride 500 ML @ 500 / 500 1875 mls/hr IVC .Q16M ONE Rx#: [id number] PRECEDEX Premix 400 mcg In 100 14 / 14 ml @ 0.2 MCG/KG/HR 5.125 mls/hr IVC .[id number] [facility] Rx#: [id number] FentaNYL (PF) 1,000 MCG In 0.9 100 / 100 % Sodium Chloride 80 ML @ 50 MCG/HR 5 mls/hr IVC CONT RITIKA Rx #:[id number] Diprivan 1,000 mg In 100 ml @ 100 / 100 200 / 200 30 MCG/KG/MIN 18.45 mls/hr IVC .[id number] [facility] Rx#:[id number] Sodium Bicarbonate 150 MEQ In 1150 / 1150 1000 / 1000 Dextrose 5% 1,000 ML @ 100 mls/ hr IVC .[id number] [facility] Rx#: [id number] Rocephin 1,000 MG In Water for 10 / 10 inj. (sterile) 10 ML @ 300 mls/ hr IVP DAILY [facility] Rx#:[id number] Ofirmev 1,000 mg/100 ml 1,000 100 / 100 mg In 100 ml @ 400 mls/hr IVPB ONCE ONE Rx#:[id number] Levaquin Premix 750mg/150 mL 150 / 150 750 mg In 150 ml @ 100 mls/hr IVPB Q48H [facility] Rx#:[id number] Oral 480 / 480 Output: Catheter 375 / 375 350 / 350 Other: Meal Dinner Percent of Meal Consumed 85% Weight 102.5 kg Blood Glucose* 119 113 Patient Weight 03/06/17 23:59 Weight 102.5 kg - General Appearance General appearance: well-developed, well-nourished, appears started age, obese EENT: mucous membranes moist Neck: no JVD, no carotid bruit Additional Comments: harsh breath sounds Cardiology: edema, regular rate, regular rhythm Additional Comments: generalized non pitting edema Gastrointestinal: hypoactive bowel sounds Integumentary: warm and dry Results - Lab Results 03/06/17 02:25 03/06/17 07:38 Most recent lab results ABG pH 7.39 pH Units (7.32-7.45) 03/05/17 23:30 ABG pCO2 31 mmHg (35-45) L 03/05/17 23:30 ABG pO2 68 mmHg (85-104) L 03/05/17 23:30 ABG HCO3 19 mEq/L (21-27) L 03/05/17 23:30 ABG O2 Saturation 93 % (95-98) L 03/05/17 23:30 Calcium 7.4 mg/dL (8.6-10.3) L 03/06/17 02:25 Phosphorus 5.3 mg/dL (2.7-4.5) H 03/06/17 02:25 Magnesium 1.7 mg/dL (1.6-2.6) 03/06/17 02:25 Urine Creatinine 217 mg/dL 03/06/17 11:03 Urine Sodium 23.4 mEq/L 03/06/17 11:03 Consult Discharge Plan - Plan Referrals: Noris Mancuso, [employer]IC[employer]ER [Primary Care Provider] -
[2017-03-06 16:28] LABS: Adenovirus Not Detected (Not Detect); Bordetella Pertussis Not Detected (Not Detect); Chlamydophila pneumoniae Not Detected (Not Detect); Coronavirus 229E Not Detected (Not Detect); Coronavirus HKU1 Not Detected (Not Detect); Coronavirus NL63 Not Detected (Not Detect); Coronavirus OC43 Not Detected (Not Detect); Human Metapneumovirus Not Detected (Not Detect); Human Rhinovirus/Enterovirus Not Detected (Not Detect); Influenza A Subtype 2009 H1 Not Detected (Not Detect); Influenza A Untypeable Not Detected (Not Detect); Influenza B Not Detected (Not Detect); Mycoplasma pneumoniae Not Detected (Not Detect); Parainfluenza Virus 1 Not Detected (Not Detect); Parainfluenza Virus 2 Not Detected (Not Detect); Parainfluenza Virus 3 Not Detected (Not Detect); Parainfluenza Virus 4 Not Detected (Not Detect); Respiratory Syncytial Virus Not Detected (Not Detect)
[2017-03-06 18:25] LABS: Source of Body Fluid LEFT UPPER LOBE LUNG
[2017-03-06 21:43] LABS: Appearance of Body Fluid Cloudy (Clear); Volume of Body Fluid 15 mL
[2017-03-07] MEDS: Sodium Bicarbonate 150 MEQ in D5% in Water 1,000 ML IVC SCH (00:23)
[2017-03-07] MEDS: Dexmedetomidine HCl 400 MCG/100 ML MLS IVC SCH ×2 (00:24→21:02)
[2017-03-07] MEDS: Lacri-Lube 3.5 GM TUBE BOTH EYES SCH ×6 (00:25→20:53)
[2017-03-07 04:08] LABS: Basophils % 0.3 %; Eosinophils # 0.1 K/mcL (0.0-0.6); Eosinophils % 0.9 %; Hematocrit 23.9 % (37.5-50.1); Hemoglobin 7.9 g/dL (12.9-16.9); Immature Granulocytes % 0.3 % (0-4); Lymphocytes # 1.8 K/mcL (0.6-4.6); Lymphocytes % 14.9 %; Mean Corpuscular HGB Conc 33.1 g/dL (31.6-35.5); Mean Corpuscular Hemoglobin 28.2 pg (28.0-33.3); Mean Corpuscular Volume 85.4 fL (83.0-100.0); Mean Platelet Volume 9.3 fL (9.4-12.4); Monocytes # 1.5 K/mcL (0.0-1.3); Monocytes % 12.5 %; Neutrophils # 8.5 K/mcL (1.6-8.9); Platelet Count 239 K/mcL (140-400); Red Cell Distribution Width 14.3 % (11.5-14.5); Segmented Neutrophils % 71.1 %
[2017-03-07 04:19] LABS: Albumin 2.1 g/dL (3.5-5.7); Albumin/Globulin Ratio 0.6 (1.1-2.2); Bilirubin,Total 0.2 mg/dL (0.3-1.0); Calcium 7.4 mg/dL (8.6-10.3); Globulin 3.6 g/dL (2.4-3.5); Potassium 4.4 mEq/L (3.5-5.1); Total Protein 5.7 g/dL (6.4-8.9)
[2017-03-07] MEDS: Ipratropium/Albuterol Neb 3 ML IH SCH ×4 (04:59→21:51)
[2017-03-07] MEDS: FentaNYL (PF) 1,000 MCG in 0.9 % Sodium Chloride 80 ML IVC SCH ×2 (05:17→16:14)
[2017-03-07] MEDS: Pantoprazole 40 MG VIAL IVP SCH ×2 (05:20→17:49)
[2017-03-07 05:32] LABS: ABG Base Excess -1 mEq/L (-2 to 3); ABG HCO3 25 mEq/L (21-27); ABG Oxygen Saturation 92 % (95-98); ABG PCO2 44 mmHg (35-45); ABG PH 7.36 pH Units (7.32-7.45); ABG PO2 67 mmHg (85-104); ABG TCO2 26 mEq/L (20-26); Blood Gas Modality VC; Blood Gas PEEP 10 cm H2O; Blood Gas Respiration Rate 18; Blood Gas VT 450 cc
--- NOTE | 2017-03-07 06:48 | Pulmonology Progress Note ---
<Chandler Bobby - Last Filed: 03/07/17 16:54> Date of Encounter: 03/07/17 Time of Encounter: 06:43 Assessment and Plan (1) Acute respiratory failure Current Visit: Yes Status: Acute Patient developed acute respiratory failure and altered mental status requiring intubation and mechanical ventilation. Chest x-ray demonstrates bilateral pulmonary edema. Likely multifactorial, patient's history of diastolic heart failure in combination with suspected aspiration pneumonia. There is also concern for granulomatous polyangiitis versus MPA. 03/07: Not improving, continue with broad-spectrum antibiotics on vancomycin, Zosyn and Levaquin. Possibility of vasculitis, will consult rheumatology. Plan: - Continue mechanical ventilation with sedation - Bronchoscopy concerning for aspiration pneumonia, patient had bleeding from right upper lung, continue differential includes MPA and GPA - We will hold off and diuresis until further renal evaluation - Treatment of CAP with broad-spectrum antibiotics as mentioned above. Qualifiers: Respiratory failure complication: hypoxia Qualified Code(s): J96.01 - Acute respiratory failure with hypoxia (2) Pneumonia Current Visit: Yes Status: Acute Concerns for aspiration pneumonia. CT of the chest demonstrates: Moderate bilateral pleural effusions. Bilateral lower lobe collapse. Patchy heterogeneous pulmonary opacity within the aerated portions of lungs, greatest within the upper lobes, for which pneumonia, edema, or hemorrhage are considerations given patient history 03/07: Patient underwent bronchoscopy yesterday BAL with greater than 10,000 gram-positive cocci, findings of pulmonary hemorrhage and left upper lobe. - Zosyn and Levaquin (day 2/7) - Continue 7 days of treatment. Qualifiers: Qualified Code(s): J18.9 - Pneumonia, unspecified organism (3) Diastolic heart failure Current Visit: Yes Status: Acute Known history of diastolic heart failure with ejection fraction of 65% in 2016. - Currently has bilateral pulmonary edema with normal cardiac silhouette on chest x-ray, will repeat echocardiogram - Troponin times one nonsignificant - BNP 424 03/07: Continue to hold diuresis in the setting of worsening renal function, patient to receive HD catheter for potential HD. Echocardiogram from 03/06/2017: Impressions: LVEF 60%. Asymmetric basal septal hypertrophy. Indeterminate diastolic function. Normal right ventricular structure and function. No significant valvular dysfunction. Unable to estimate RVSP - patient on ventilator. Plan: - May require diuresis after renal function evaluated. Qualifiers: Heart failure chronicity: acute on chronic Qualified Code(s): I50.33 - Acute on chronic diastolic (congestive) heart failure (4) Acute renal failure Current Visit: No Status: Acute Acute kidney injury, previous renal function was normal. Suspected prerenal, considering differential diagnosis of pulmonary renal syndrome, immunologic such as Radha's or MPA, worsening renal function may also be due to RTA 03/07: Renal function continues to decline with current creatinine 3.66 up from 3.0 yesterday, urine sodium appropriate, urine osmole is low, potential for glomerular nephritis. Nephrology involved. Patient to undergo renal biopsy today, HD catheter placement today. Plan: - Strict intake and output monitoring - HD catheter - Avoid nephrotoxic medications and renally dosing of Biaxin. - Nephrology Following Qualifiers: Acute renal failure type: unspecified Qualified Code(s): N17.9 - Acute kidney failure, unspecified (5) Hyponatremia Current Visit: No Status: Acute Patient has a sodium of 123, consider hypervolemic hyponatremic cause, cannot rule out sodium wasting. Hyponatremia workup as listed above and acute kidney injury. - Nephrology consult (6) Opiate overdose Current Visit: No Status: Acute Patient with opiate overdose, nonintentional. Patient has stable prescribing history of opiates and gabapentin. All have been held. Qualifiers: Encounter type: initial encounter Injury intent: accidental or unintentional Qualified Code(s): T40.601A - Poisoning by unspecified narcotics , accidental (unintentional), initial encounter (7) Anemia Current Visit: No Status: Acute Anemia worse this morning. Hgb 7.9 down from 8.7 yesterday. Hgb 14.9 in August 2016. New onset anemia likely blood loss anemia. Patient has +FOBT upon admission. Seen by general surgery and waiting on Upper endoscopy and colonoscopy. DDX: GN, GPA, MPA Plan: Continue to monitor H&H Replace PRBCs if Hgb <7.0 Qualifiers: Anemia type: unspecified type Qualified Code(s): D64.9 - Anemia, unspecified (8) GI bleed Current Visit: Yes Status: Acute FOBT positive, patient has anemia. Significant colonoscopy history. Seen by general surgery who recommended endoscopy and colonoscopy by unstable at this time. Qualifiers: GI bleed type/associated pathology: unspecified gastrointestinal hemorrhage type Qualified Code(s): K92.2 - Gastrointestinal hemorrhage, unspecified (9) DVT prophylaxis Current Visit: Yes Status: Acute SCDs Subjective Interval history: Mr. Velázquez 52-year-old male intubated and sedated seen and evaluated patient bedside was morning. No acute changes overnight stable on mechanical ventilation. Objective PUL Vital signs: Last Vital Signs Temp 99.6 F 03/07/17 03:00 Pulse 100 03/07/17 06:00 Resp 20 03/07/17 06:15 BP 149/85 03/07/17 06:15 Pulse Ox 94 03/07/17 06:15 General appearance: no acute distress, other (Sedated and intubated requiring mechanical ventilation.) Eyes: nonicteric ENT: oropharynx moist Neck: supple Effort: normal Auscultation: bilateral: rhonchi (Bilateral lung bases) Cardiovascular: regular rate and rhythm Gastrointestinal: normoactive bowel sounds, soft, non-distended Integumentary: normal Extremities: no cyanosis, no clubbing, pink and warm, pulses normal, edema ( Trace bilateral ankles) Musculoskeletal: no deformities Ventilator Settings Ventilator Settings: Ventilator Settings, Last 8 Hours Ventilator Mode VC+ Ventilator Mode VC+ Ventilator Mode VC+ Ventilator Mode VC+ Ventilator Mode VC+ Ventilator Mode VC+ Ventilator Mode VC+ Ventilator Mode VC+ Ventilator Mode VC+ Ventilator Mode VC+ Ventilator Mode VC+ Ventilator Mode VC+ Ventilator Mode VC+ Ventilator Tidal Volume 450 Setting Ventilator Tidal Volume 450 Setting Ventilator Tidal Volume 450 Setting Ventilator Tidal Volume 450 Setting Ventilator Tidal Volume 450 Setting Ventilator Tidal Volume 450 Setting Ventilator Tidal Volume 450 Setting Ventilator Tidal Volume 450 Setting Ventilator Tidal Volume 450 Setting Ventilator Tidal Volume 450 Setting Ventilator Tidal Volume 450 Setting Ventilator Tidal Volume 450 Setting Ventilator Tidal Volume 450 Setting Ventilator Respiratory Rate 18 Setting Ventilator Respiratory Rate 18 Setting Ventilator Respiratory Rate 18 Setting Ventilator Respiratory Rate 18 Setting Ventilator Respiratory Rate 18 Setting Ventilator Respiratory Rate 18 Setting Ventilator Respiratory Rate 18 Setting Ventilator Respiratory Rate 18 Setting Ventilator Respiratory Rate 18 Setting Ventilator Respiratory Rate 18 Setting Ventilator Respiratory Rate 18 Setting Ventilator Respiratory Rate 18 Setting Ventilator Respiratory Rate 18 Setting Actual Respiratory Rate 22 Actual Respiratory Rate 24 Actual Respiratory Rate 20 Actual Respiratory Rate 20 Actual Respiratory Rate 22 Actual Respiratory Rate 24 Actual Respiratory Rate 21 Actual Respiratory Rate 22 Actual Respiratory Rate 24 Actual Respiratory Rate 23 Actual Respiratory Rate 24 Actual Respiratory Rate 23 Positive End Expiratory 10 Pressure Positive End Expiratory 10 Pressure Positive End Expiratory 10 Pressure Positive End Expiratory 10 Pressure Positive End Expiratory 10 Pressure Positive End Expiratory 10 Pressure Positive End Expiratory 10 Pressure Positive End Expiratory 10 Pressure Positive End Expiratory 10 Pressure Positive End Expiratory 10 Pressure Positive End Expiratory 10 Pressure Positive End Expiratory 10 Pressure Positive End Expiratory 10 Pressure Peak Inspiratory Airway 41 Pressure Peak Inspiratory Airway 43 Pressure Peak Inspiratory Airway 35 Pressure Peak Inspiratory Airway 34 Pressure Peak Inspiratory Airway 32 Pressure Peak Inspiratory Airway 23 Pressure Peak Inspiratory Airway 39 Pressure Peak Inspiratory Airway 31 Pressure Peak Inspiratory Airway 23 Pressure Peak Inspiratory Airway 22 Pressure Peak Inspiratory Airway 17 Pressure Peak Inspiratory Airway 22 Pressure Results - Laboratory Findings CBC and BMP: 03/07/17 03:55 03/07/17 03:55 ABG ABG pH 7.36 pH Units (7.32-7.45) 03/07/17 05:29 ABG pCO2 44 mmHg (35-45) 03/07/17 05:29 ABG pO2 67 mmHg (85-104) L 03/07/17 05:29 ABG O2 Saturation 92 % (95-98) L 03/07/17 05:29 Abnormal lab findings: Abnormal lab results WBC 12.0 K/mcL (4.3-11.1) H 03/07/17 03:55 RBC 2.80 M/mcL (4.19-5.50) L 03/07/17 03:55 Hgb 7.9 g/dL (12.9-16.9) L 03/07/17 03:55 Hct 23.9 % (37.5-50.1) L 03/07/17 03:55 MPV 9.3 fL (9.4-12.4) L 03/07/17 03:55 Monocytes # 1.5 K/mcL (0.0-1.3) H 03/07/17 03:55 ABG pO2 67 mmHg (85-104) L 03/07/17 05:29 ABG O2 Saturation 92 % (95-98) L 03/07/17 05:29 Sodium 123 mEq/L (136-145) L 03/07/17 03:55 Chloride 92 mEq/L (98-107) L 03/07/17 03:55 BUN 47 mg/dL (6-20) H 03/07/17 03:55 Creatinine 3.66 mg/dL (0.70-1.30) H 03/07/17 03:55 Est GFR ( Amer) 21 (> 60) L 03/07/17 03:55 Est GFR (Non-Af Amer) 18 (> 60) L 03/07/17 03:55 POC Glucose 112 (58-89) H 03/06/17 23:58 Serum Osmolality 276 mOsm/kg (280-300) L 03/06/17 07:38 Calculated Osmolality 268 (280-300) L 03/07/17 03:55 Calcium 7.4 mg/dL (8.6-10.3) L 03/07/17 03:55 Phosphorus 5.3 mg/dL (2.7-4.5) H 03/06/17 02:25 Total Bilirubin 0.2 mg/dL (0.3-1.0) L 03/07/17 03:55 AST 8 Units/L (13-39) L 03/07/17 03:55 B-Natriuretic Peptide 424 pg/mL (Less than 100) H 03/06/17 07:38 Serum Total Protein 5.7 g/dL (6.4-8.9) L 03/07/17 03:55 Albumin 2.1 g/dL (3.5-5.7) L 03/07/17 03:55 Globulin 3.6 g/dL (2.4-3.5) H 03/07/17 03:55 Albumin/Globulin Ratio 0.6 (1.1-2.2) L 03/07/17 03:55 TSH 0.079 mcIU/mL (0.340-5.600) L 03/05/17 07:07 Free T3 2.37 pg/mL (2.50-3.90) L 03/06/17 07:38 Urine Osmolality 253 mOsm/kg (300-1090) L 03/06/17 11:03 Fluid Appearance Cloudy (Clear) A 03/06/17 16:17 - Microbiology Findings Microbiology Findings: Microbiology, Last 48 Hours 03/06/17 16:17 Gram Stain - Final Left Upper Lobe Lung 03/06/17 14:50 Sputum Culture - Preliminary Sputum - Clinical Findings Intake & Output: Intake & Output 03/06/17 03/06/17 03/07/17 15:59 23:59 07:59 Intake Total 1810 / 1810 400 / 400 1450 / 1450 Output Total 100 / 100 475 / 475 400 / 400 Balance 1710 / 1710 -75 / -75 1050 / 1050 Weight 106.7 kg Consult Discharge Plan - Plan Referrals: Noris Mancuso, C[employer] MANUFACTURING ENGINEER [Primary Care Provider] - <Ab Christensen - Last Filed: 03/07/17 22:31> Date of Encounter: 03/07/17 Objective PUL Vital signs: Last Vital Signs Temp 99.7 F H 03/07/17 07:53 Pulse 99 03/07/17 09:00 Resp 20 03/07/17 09:58 BP 148/82 03/07/17 09:58 Pulse Ox 94 03/07/17 09:58 Ventilator Settings Ventilator Settings: Ventilator Settings, Last 8 Hours Ventilator Mode VC+ Ventilator Mode VC+ Ventilator Mode VC+ Ventilator Mode VC+ Ventilator Mode VC+ Ventilator Mode VC+ Ventilator Mode VC+ Ventilator Mode VC+ Ventilator Mode VC+ Ventilator Mode VC+ Ventilator Mode VC+ Ventilator Mode VC+ Ventilator Tidal Volume 400 Setting Ventilator Tidal Volume 450 Setting Ventilator Tidal Volume 450 Setting Ventilator Tidal Volume 450 Setting Ventilator Tidal Volume 450 Setting Ventilator Tidal Volume 450 Setting Ventilator Tidal Volume 450 Setting Ventilator Tidal Volume 450 Setting Ventilator Tidal Volume 450 Setting Ventilator Tidal Volume 450 Setting Ventilator Tidal Volume 450 Setting Ventilator Tidal Volume 450 Setting Ventilator Respiratory Rate 18 Setting Ventilator Respiratory Rate 18 Setting Ventilator Respiratory Rate 18 Setting Ventilator Respiratory Rate 18 Setting Ventilator Respiratory Rate 18 Setting Ventilator Respiratory Rate 18 Setting Ventilator Respiratory Rate 18 Setting Ventilator Respiratory Rate 18 Setting Ventilator Respiratory Rate 18 Setting Ventilator Respiratory Rate 18 Setting Ventilator Respiratory Rate 18 Setting Ventilator Respiratory Rate 18 Setting Actual Respiratory Rate 20 Actual Respiratory Rate 21 Actual Respiratory Rate 21 Actual Respiratory Rate 20 Actual Respiratory Rate 22 Actual Respiratory Rate 24 Actual Respiratory Rate 20 Actual Respiratory Rate 20 Actual Respiratory Rate 22 Actual Respiratory Rate 24 Actual Respiratory Rate 21 Positive End Expiratory 10 Pressure Positive End Expiratory 10 Pressure Positive End Expiratory 10 Pressure Positive End Expiratory 10 Pressure Positive End Expiratory 10 Pressure Positive End Expiratory 10 Pressure Positive End Expiratory 10 Pressure Positive End Expiratory 10 Pressure Positive End Expiratory 10 Pressure Positive End Expiratory 10 Pressure Positive End Expiratory 10 Pressure Positive End Expiratory 10 Pressure Peak Inspiratory Airway 27 Pressure Peak Inspiratory Airway 37 Pressure Peak Inspiratory Airway 37 Pressure Peak Inspiratory Airway 35 Pressure Peak Inspiratory Airway 41 Pressure Peak Inspiratory Airway 43 Pressure Peak Inspiratory Airway 35 Pressure Peak Inspiratory Airway 34 Pressure Peak Inspiratory Airway 32 Pressure Peak Inspiratory Airway 23 Pressure Peak Inspiratory Airway 39 Pressure Results - Laboratory Findings CBC and BMP: 03/07/17 03:55 03/07/17 03:55 ABG ABG pH 7.36 pH Units (7.32-7.45) 03/07/17 05:29 ABG pCO2 44 mmHg (35-45) 03/07/17 05:29 ABG pO2 67 mmHg (85-104) L 03/07/17 05:29 ABG O2 Saturation 92 % (95-98) L 03/07/17 05:29 PT/INR, D-dimer PT 14.0 Seconds (9.4-12.1) H 03/07/17 07:46 Abnormal lab findings: Abnormal lab results WBC 12.0 K/mcL (4.3-11.1) H 03/07/17 03:55 RBC 2.80 M/mcL (4.19-5.50) L 03/07/17 03:55 Hgb 7.9 g/dL (12.9-16.9) L 03/07/17 03:55 Hct 23.9 % (37.5-50.1) L 03/07/17 03:55 MPV 9.3 fL (9.4-12.4) L 03/07/17 03:55 Monocytes # 1.5 K/mcL (0.0-1.3) H 03/07/17 03:55 PT 14.0 Seconds (9.4-12.1) H 03/07/17 07:46 APTT 38.3 Seconds (26.0-36.0) H 03/07/17 07:46 Fibrinogen 427 mg/dL (169-393) H 03/07/17 07:46 ABG pO2 67 mmHg (85-104) L 03/07/17 05:29 ABG O2 Saturation 92 % (95-98) L 03/07/17 05:29 Sodium 123 mEq/L (136-145) L 03/07/17 03:55 Chloride 92 mEq/L (98-107) L 03/07/17 03:55 BUN 47 mg/dL (6-20) H 03/07/17 03:55 Creatinine 3.66 mg/dL (0.70-1.30) H 03/07/17 03:55 Est GFR ( Amer) 21 (> 60) L 03/07/17 03:55 Est GFR (Non-Af Amer) 18 (> 60) L 03/07/17 03:55 POC Glucose 112 (58-89) H 03/06/17 23:58 Serum Osmolality 276 mOsm/kg (280-300) L 03/06/17 07:38 Calculated Osmolality 268 (280-300) L 03/07/17 03:55 Calcium 7.4 mg/dL (8.6-10.3) L 03/07/17 03:55 Phosphorus 5.3 mg/dL (2.7-4.5) H 03/06/17 02:25 AST 9 Units/L (13-39) L 03/07/17 07:46 B-Natriuretic Peptide 424 pg/mL (Less than 100) H 03/06/17 07:38 Serum Total Protein 5.7 g/dL (6.4-8.9) L 03/07/17 07:46 Albumin 2.0 g/dL (3.5-5.7) L 03/07/17 07:46 Globulin 3.7 g/dL (2.4-3.5) H 03/07/17 07:46 Albumin/Globulin Ratio 0.5 (1.1-2.2) L 03/07/17 07:46 TSH 0.079 mcIU/mL (0.340-5.600) L 03/05/17 07:07 Free T3 2.37 pg/mL (2.50-3.90) L 03/06/17 07:38 Urine Osmolality 253 mOsm/kg (300-1090) L 03/06/17 11:03 Fluid Appearance Cloudy (Clear) A 03/06/17 16:17 - Microbiology Findings Microbiology Findings: Microbiology, Last 48 Hours 03/06/17 02:25 Blood Culture - Preliminary Peripheral Venipuncture No growth. 03/06/17 02:25 Blood Culture - Preliminary Peripheral Venipuncture No growth. 03/06/17 16:17 Gram Stain - Final Left Upper Lobe Lung 03/06/17 14:50 Sputum Culture - Preliminary Sputum - Clinical Findings Intake & Output: Intake & Output 03/06/17 03/07/17 03/07/17 23:59 07:59 15:59 Intake Total 400 / 400 1550 / 1550 0 / 0 Output Total 475 / 475 450 / 450 Balance -75 / -75 1100 / 1100 0 / 0 Weight 106.7 kg - Attending Attestation I saw the patient with the resident agree with History and Physical exam findings. Labs and Radiology were reviewed Ventilator data were reviewed ENGINEERING EXECUTIVE: Patient is intubated and sedated the reason he might be altered before intubation because of neurontin on board and opioids . Toxic and Metabolic encephalopathy NECK : No JVD appreciated Pulmonary : Patient has acute respiratory failure bilateral pneumonia vs Alveolar hemorrhage complicated by diastolic heart failure . During bronchoscopy patient desaturated able to do BAL from [facility] with some bleeding there but there was no evidence of endobronchial lesions . Patient had epistaxis 1 week ago was evaluated in [place] now with hemorrhage from lungs with hematuria with non nephrotic range proteinuria concern for pulmonary renal vasculitis rheumatology was consulted recommended pulsed dosed steroids if alveolar hemorrhage patient will need plasmapheresis if necessary will transfer to [facility] . Cardiac : Hemodynamically stable , diastolic heart failure will hold of diuresis because of worsening renal function Nutrition/GI: on tube feeds PPI prophylaxis Renal : LUCILA - Nephrology consult ATN Vs Glomerulonephritis in setting of alveolar hemorrhage work up pending appreciate nephrology consult UA showed hematuria with non nephrotic range with granular casts looks like GN will get renal biopsy and HD catheter ,IR guided renal biopsy was performed will need HD in near future Heme onc : Patient is concerning for pulmonary renal vasculitis monitor H and H . ID : Bilateral bibasilar pneumonia - broad spectrum antibiotics Musculo skeletal / skin issues ; No acute issues Disposition : Critically ill Code status: Full Code Family/POA: Family is updated about possible transfer for plasmapheresis. Spent 50 minutes of critical care time in medical decision making in maintaining vital organ function and to prevent further decline .
[2017-03-07] MEDS: cefTRIAXone 1,000 MG in Water for inj. (sterile) 20 ML 10 ML IVP SCH (07:55)
[2017-03-07] MEDS: *HR* OxyCODONE Immed Rel 15 MG TABLET PO PRN (07:56)
[2017-03-07] MEDS: Chlorhexidine Rinse 15 ML MOUTHWASH MM SCH ×2 (07:56→20:56)
[2017-03-07] MEDS: levETIRAcetam 250 MG TABLET PO SCH ×2 (07:56→20:56)
[2017-03-07 08:04] LABS: INR 1.3
[2017-03-07 08:07] LABS: Activated Partial Thrombo Time 38.3 Seconds (26.0-36.0)
[2017-03-07 08:16] LABS: Albumin/Globulin Ratio 0.5 (1.1-2.2); Bilirubin,Direct 0.1 mg/dL (0.0-0.2); Bilirubin,Indirect 0.2 mg/dL (0.0-1.2); Bilirubin,Total 0.3 mg/dL (0.3-1.0); Globulin 3.7 g/dL (2.4-3.5); Total Protein 5.7 g/dL (6.4-8.9)
--- NOTE | 2017-03-07 08:19 | Nephrology Progress Note ---
Date of Encounter: 03/07/17 Time of Encounter: 08:17 - Assessment and Plan (1) Acute renal failure Current Visit: No Status: Acute Patient has a clinical picture of acute kidney injury in the setting of altered mental status related to opioid use. This is complicated by acute respiratory failure requiring intubation mechanical ventilation. There is a question of aspiration pneumonia. He is also some evidence of pulmonary hemorrhage. The patient may have some type of pulmonary renal syndrome. Unfortunately a urinalysis was ordered yesterday but is yet to be done. I have secured a urine specimen from the patient this morning and will review it in the office later today. The patient is in no clinical condition to undergo a renal biopsy. We have ordered an anti-GBM antibody as well as Anka levels. Those studies are currently pending. The patient's azotemia continues to worsen and/or for urine output becomes low he will require dialytic support. Qualifiers: Acute renal failure type: unspecified Qualified Code(s): N17.9 - Acute kidney failure, unspecified (2) Bipolar 1 disorder Current Visit: No Status: Acute (3) Hyponatremia Current Visit: No Status: Acute (4) Opiate overdose Current Visit: No Status: Acute Qualifiers: Encounter type: initial encounter Injury intent: accidental or unintentional Qualified Code(s): T40.601A - Poisoning by unspecified narcotics , accidental (unintentional), initial encounter (5) Acute respiratory failure Current Visit: Yes Status: Acute Qualifiers: Respiratory failure complication: hypoxia Qualified Code(s): J96.01 - Acute respiratory failure with hypoxia Subjective Interval history: Patient is currently sedated on the ventilator. Urine output yesterday was recorded as 925 mL. Azotemia continues to worsen. There is no urinalysis available for review. Stable. The patient did undergo bronchoscopy yesterday. Objective - Vital Signs Vital signs: Vital Signs Temp Pulse Resp BP Pulse Ox 03/07/17 07:53 99.7 F H 21 146/87 95 03/07/17 06:15 20 149/85 94 03/07/17 06:00 100 24 149/85 94 03/07/17 05:00 101 20 137/84 95 03/07/17 04:59 20 141/82 95 03/07/17 04:09 94 22 141/82 94 03/07/17 03:00 99.6 F 94 24 157/83 93 03/07/17 02:41 20 121/75 97 03/07/17 02:00 97 22 114/74 94 03/07/17 01:00 101 24 121/74 93 03/07/17 00:00 99.6 F 105 23 122/79 96 03/06/17 23:42 24 122/77 96 03/06/17 23:00 99 22 126/78 95 03/06/17 22:25 21 118/69 97 03/06/17 22:00 94 24 119/70 97 03/06/17 20:59 92 24 129/80 97 03/06/17 20:00 99.1 F 105 20 124/81 97 03/06/17 19:12 99.1 F 03/06/17 19:00 99 24 143/89 95 03/06/17 18:25 26 97 03/06/17 18:00 103 26 137/81 97 03/06/17 17:00 105 22 121/77 96 03/06/17 16:18 24 97 03/06/17 16:00 99.3 F 105 27 141/81 94 03/06/17 15:04 27 97 03/06/17 15:00 98 22 143/95 98 03/06/17 14:00 96 20 136/85 97 03/06/17 13:00 101 26 151/97 96 03/06/17 12:00 98.0 F 101 26 151/97 96 03/06/17 11:30 25 98 03/06/17 11:00 100 24 125/71 98 03/06/17 10:00 101 25 133/83 99 03/06/17 09:45 25 99 03/06/17 09:00 96 28 134/86 99 Intake and Output 03/06/17 03/07/17 03/07/17 23:59 07:59 15:59 Intake Total 400 / 400 1550 / 1550 Output Total 475 / 475 450 / 450 Balance -75 / -75 1100 / 1100 Intake: IV Fluids 400 / 400 1550 / 1550 FentaNYL (PF) 1,000 MCG In 0.9 100 / 100 100 / 100 % Sodium Chloride 80 ML @ 50 MCG/HR 5 mls/hr IVC CONT RITIKA Rx #:[id number] Diprivan 1,000 mg In 100 ml @ 300 / 300 300 / 300 30 MCG/KG/MIN 18.45 mls/hr IVC .[id number] RITIKA Rx#:[id number] Sodium Bicarbonate 150 MEQ In 1150 / 1150 Dextrose 5% 1,000 ML @ 100 mls/ hr IVC .[id number] RITIKA Rx#: [id number] Output: Catheter 25 / 25 200 / 200 Gastric Drainage 450 / 450 250 / 250 Other: Weight 106.7 kg Blood Glucose* 111 112 Patient Weight 03/07/17 23:59 Weight 106.7 kg - General Appearance Exam: Patient is sedated on the ventilator. Vital signs are stable. He is in no acute distress. Lungs coarse breath sounds. Heart regular rate and rhythm. Abdomen is soft without any guarding or rigidity. There is minimal lower extremity swelling. There is a Sanchez catheter in place with only small amount of urine in the collection bag. - Lab 03/07/17 03:55 03/07/17 03:55 Most recent lab results ABG pH 7.36 pH Units (7.32-7.45) 03/07/17 05:29 ABG pCO2 44 mmHg (35-45) 03/07/17 05:29 ABG pO2 67 mmHg (85-104) L 03/07/17 05:29 ABG HCO3 25 mEq/L (21-27) 03/07/17 05:29 ABG O2 Saturation 92 % (95-98) L 03/07/17 05:29 Calcium 7.4 mg/dL (8.6-10.3) L 03/07/17 03:55 Phosphorus 5.3 mg/dL (2.7-4.5) H 03/06/17 02:25 Magnesium 1.7 mg/dL (1.6-2.6) 03/06/17 02:25 Urine Creatinine 217 mg/dL 03/06/17 11:03 Urine Sodium 23.4 mEq/L 03/06/17 11:03 Consult Discharge Plan - Plan Referrals: Noris Mancuso, LISE [Primary Care Provider] -
[2017-03-07] MEDS ORDERED: Vancomycin 1,500 MG in D5% in Water 250 ML IVPB SCH (09:00)
[2017-03-07] MEDS ORDERED: Vancomycin 1,500 MG in D5% in Water 250 ML IVPB ONE (10:00)
[2017-03-07] MEDS: Diltiazem CD (24hr) 300 MG CAPSULE PO SCH (10:28)
[2017-03-07] MEDS ORDERED: Aminoglycoside Consult 1 EACH MC ONE (10:44)
[2017-03-07] MEDS ORDERED: *HR* Midazolam HCl 5 MG/5 ML VIAL IVP ONE (13:42)
--- NOTE | 2017-03-07 14:01 | Rheumatology Consult Note ---
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) including granulomatosis with polyangiitis (GPA), microscopic polyangiitis (MPA), renal-limited vasculitis (RLV), and eosinophilic granulomatosis with polyangiitis (EGPA, Churg-Zechariah) Urinalysis reveals moderate blood, 50-100 RBCs, > 300 mg/dL protein, and many hyaline, granular, and WBC casts Bronchoscopy and BAL revealed excessive bleeding, pneumonitis due to aspiration Renal biopsy was obtained and results are pending Start Solumedrol 500mg IV BID Labs pending: ANCA, KEL, MPO/PR3, HBV, HCV, Anti-GBM antibody, quantiferon Gold , and urine protein creatinine ratio pending Low threshold for transfer for plasmapheresis if pulmonary hemorrhage worsens (2) Acute respiratory failure Current Visit: Yes Status: Acute Intubated and sedated Management per pulmonology Qualifiers: Respiratory failure complication: hypoxia Qualified Code(s): J96.01 - Acute respiratory failure with hypoxia (3) Acute renal failure Current Visit: No Status: Acute Nephrology following Temporary HD catheter placed 03/07/17 by IR If azotemia continues to worsen, patient will require dialysis Qualifiers: Acute renal failure type: unspecified Qualified Code(s): N17.9 - Acute kidney failure, unspecified (4) Aspiration pneumonia Current Visit: Yes Status: Acute Bronchoscopy and BAL revealed excessive bleeding, pneumonitis due to aspiration Continue empiric antibiotics and await culture results Qualifiers: Aspiration pneumonia type: unspecified Laterality: left Lung location: upper lobe of lung Qualified Code(s): J69.0 - Pneumonitis due to inhalation of food and vomit (5) Guaiac positive stools Current Visit: Yes Status: Acute Patient was treated for epistaxis 1 week ago at [facility]. Positive FOBT, worsening anemia. History of polyps during previous colonoscopy. General surgery recommended performing endoscopy and colonoscopy once patient is more stable (6) Anemia Current Visit: No Status: Acute Likely acute blood loss anemia Continue to monitor H&H and replace PRBCs if Hgb <7.0 Qualifiers: Anemia type: unspecified type Qualified Code(s): D64.9 - Anemia, unspecified (7) Diastolic heart failure Current Visit: Yes Status: Acute Diastolic heart failure with ejection fraction of 60% on Echocardiogram, previous EF 65% in 2016. Pulmonary edema on chest x-ray BNP 424, pulmonary edema with bibasilar rhonchi on exam, pedal edema Qualifiers: Heart failure chronicity: acute on chronic Qualified Code(s): I50.33 - Acute on chronic diastolic (congestive) heart failure (8) Acute encephalopathy Current Visit: Yes Status: Acute Toxic and metabolic encephalopathy related to opioid use (9) COPD (chronic obstructive pulmonary disease) Current Visit: Yes Status: Acute Management per pulmonology Qualifiers: COPD type: unspecified COPD Qualified Code(s): J44.9 - Chronic obstructive pulmonary disease, unspecified (10) Bipolar 1 disorder Current Visit: No Status: Chronic Patient's reports anic episodes during previous steroid administration Rheumatology HPI Consult date: 03/07/17 Requesting physician: Ab Christensen Consult reason: Possible vasculitis Chief complaint: AMS History of present illness: Mr. Velázquez is a 52 year old male with a PMH of CHF, COPD, and GI bleed who was transferred to the ICU form [facility] due to altered mental status related to opioid use. Patient developed acute respiratory failure and altered mental status requiring intubation and mechanical ventilation. Thus, the history is obtained from patient's medical record. is at bedside and reports patient was treated for epistaxis 1 week ago at [facility]. Patient's HGB has decreased from 9.2 on admission to 7.9, serum creatinine steadily increasing, and urinalysis reveals moderate blood, 50-100 RBCs, > 300 mg/dL protein, and many hyaline, granular, and WBC casts. Rheumatology was consulted for possible vasculitis. Patient underwent bronchoscopy and BAL revealing excessive bleeding and pneumonitis due to aspiration. Renal biopsy results are pending. Past Med Surg Social Fam HX - Past Medical History Medical history: CHF, COPD, hyperlipidemia, hypertension, seizures, other Psychiatric history: anxiety, bipolar, depression - Past Surgical History Surgical History: orthopedic, other, other - Social History Smoking Status: Current some day smoker Smokeless Tobacco Status: Yes (snuff) Alcohol use: occasionally Drug use: prescription drug abuse - Family History Mother Living Status: Hx Family Cancer: Yes (lung) Medications and Allergies ALPRAZolam [Xanax 0.5 MG Tablet] 1 mg PO BID PRN 10/19/14 [History] Atorvastatin [Lipitor] 40 mg PO HS 10/19/14 [History] Diltiazem CD (24hr) [Cardizem CD] 300 mg PO DAILY 10/19/14 [History] Hickman Carbonate ER [Lithobid] 600 mg PO BID 10/19/14 [History] OxyCODONE Immed Rel [Roxicodone 15 MG] 15 mg PO Q4HR PRN 10/19/14 [History] Paroxetine [Paxil] 60 mg PO DAILY 10/19/14 [History] Tiotropium [Spiriva] 18 mcg IH DAILY 10/19/14 [History] Pantoprazole Sodium [Protonix] 40 mg PO QAM 06/10/15 [History] Lisinopril-HCTZ 20-12.5 [Prinzide 20-12.5] 1 tab PO DAILY 09/15/15 [History] Albuterol Sulfate [Albuterol Inhaler] 1 - 2 puff IH Q6HR PRN #1 [id number] 03/02 [Rx] ALPRAZolam [Xanax 1 MG Tablet] 2 mg PO HS PRN 03/05/17 [History] Gabapentin [Neurontin] 800 mg PO TID 03/05/17 [History] LevETIRAcetam [Roweepra] 500 mg PO BID 03/05/17 [History] Tizanidine HCl [Tizanidine HCl] 4 mg PO BID PRN 03/05/17 [History] 3 Allergy/AdvReac Type Severity Reaction Status Date / Time cephalexin [From Keflex] Allergy Anaphylaxis Verified 03/02/16 16:30 Latex, Natural Rubber Allergy Hives Verified 03/02/16 16:30 ROS unobtainable: due to endotracheal tube All Systems Review: A 10-system review of systems was performed and is negative for pertinent findings except as documented above in the HPI. Rheumatology Exam Vital Signs, Last 4 Hours Temp Pulse Resp BP Pulse Ox 03/07/17 13:06 23 186/106 95 03/07/17 12:05 100.3 F H 03/07/17 12:00 100.3 F H 108 22 172/89 95 01/09/18 11:03 21 155/98 94 03/07/17 11:00 105 20 164/90 94 Exam: GENERAL: intubated and sedated WN/WD male HEENT: AT, MMM, no nasal or oral ulcers, no telangiectasia CV: RRR, no M/R/G, trace pedal edema RESP: bibasilar rhonchi GI: Soft, NT, + BS, no organomegaly MSK: no deformities, no joint swelling SKIN: warm, dry, no rash, no palpable nodules, multiple tattoos NEURO: sedated, responds to noxious stimuli PSYCH: unable to assess Rheumatology Results 03/07/17 03:55 03/07/17 03:55 All other labs normal. Consult Discharge Plan - Plan Referrals: Noris Mancuso, LISE [Primary Care Provider] - <Guicho Dove - Last Filed: 03/07/17 17:07> Date of Encounter: 03/07/17 Rheumatology HPI History of present illness: Mr. Velázquez is a 52 year old male All Systems Review: A 10-system review of systems was performed and is negative for pertinent findings except as documented above in the HPI. Rheumatology Exam Vital Signs, Last 4 Hours Temp Pulse Resp BP Pulse Ox 03/07/17 16:00 105 22 125/73 94 03/07/17 15:53 21 94 03/07/17 15:51 99.5 F 03/07/17 15:00 102 22 133/79 100 03/07/17 14:22 111 8 147/90 100 03/07/17 14:18 112 13 100 03/07/17 14:13 112 12 153/115 100 03/07/17 14:00 102 22 133/79 100 03/07/17 13:06 23 186/106 95 03/07/17 13:00 110 24 147/78 100 Rheumatology Results 03/07/17 03:55 03/07/17 03:55 All other labs normal. - Attending Attestation I examined this patient and my medical decision making was reviewed with the resident physician. I agree with the documented findings, disposition and treatment as described with these exceptions. Claude Velázquez is a 52 yr old male with PMH of CAD, COPD, HTN, smoking who presents to [facility] for altered mental status then developing respiratory failure, pulmonary hemorrhage, acute kidney injury with hematuria/ proteinuria. Spoke to in room; in last week he was hospitalized at [facility] in [place] for Epistaxis. Reports cough. Workup thus far: TTE - Preserved EF CT Chest -Moderate pleural effusions, patchy opacities. 6 mm middle lobe nodule. Bronch with bleeding and no lesions. Respiratory cultures for staph aureus Exam and history limited due to intubation and sedation. No visible rashes. Ventilator breath sounds. Pitting edema of all four extremities. At this time, this patient has respiratory failure with pulmonary hemorrhage, worsening renal failure with microscopic hematuria, nonnephrotic proteinuria that is suggestive of a pulmonary renal vasculitis. Recent hospitalization ( [facility]) for espistaxis) Pulmonary and renal are both following. Kidney biopsy has been obtained and results pending. Covered for infectious pneumonia with antibiotics per ICU team. At this time, I believe we need to cover for vasculitis given his severe and multisystem findings. Would recommend pulsed dose steroids. Spoke to ICU team; if worsening of symptoms would consider transfer for plasmapheresis. ANCA, KEL, GBM pending. Will order hepatitis and quantiferon serologies in case of aggressive immunosuppression. Will continue to follow.
[2017-03-07] MEDS ORDERED: *HR* Heparin 5,000 UNIT/ML VIAL ONE (14:18)
[2017-03-07] MEDS: Piperacillin/Tazobactam 3.375 GM/200 ML BAG IVPB SCH (16:18)
[2017-03-07] MEDS: dilTIAZem HCl 60 MG TABLET PO SCH (17:03)
[2017-03-07] MEDS: methylPREDNISolone 125 MG/2 ML VIAL IVP SCH (17:49)
[2017-03-07] MEDS ORDERED: Dextrose Gel 15 GM/37.5 ML TUBE PO PRN ×2 (18:46)
[2017-03-07] MEDS ORDERED: *HR* Dextrose 50 % in Water (Syg) 50 ML SYRINGE IVP PRN (18:46)
[2017-03-07] MEDS ORDERED: D5% in Water 1,000 ML IVC PRN (18:46)
[2017-03-08] MEDS: Insulin LISPRO 300 UNITS/3 ML VIAL SQ SCH ×2 (00:17→05:15)
[2017-03-08] MEDS: Lacri-Lube 3.5 GM TUBE BOTH EYES SCH ×3 (00:17→07:22)
[2017-03-08] MEDS: dilTIAZem HCl 60 MG TABLET PO SCH ×2 (00:23→07:18)
[2017-03-08] MEDS: Levofloxacin 750 MG/150 ML 750 MG/150 ML BAG IVPB SCH (01:12)
[2017-03-08] MEDS: Piperacillin/Tazobactam 3.375 GM/200 ML BAG IVPB SCH (03:09)
[2017-03-08] MEDS: Ipratropium/Albuterol Neb 3 ML IH SCH ×2 (03:47→09:56)
[2017-03-08 04:17] LABS: Basophils % 0.1 %; Hematocrit 22.6 % (37.5-50.1); Hemoglobin 7.6 g/dL (12.9-16.9); Immature Granulocytes % 0.5 % (0-4); Lymphocytes # 0.4 K/mcL (0.6-4.6); Lymphocytes % 3.7 %; Mean Corpuscular HGB Conc 33.6 g/dL (31.6-35.5); Mean Corpuscular Hemoglobin 28.6 pg (28.0-33.3); Mean Platelet Volume 9.6 fL (9.4-12.4); Monocytes # 0.3 K/mcL (0.0-1.3); Monocytes % 2.2 %; Neutrophils # 10.6 K/mcL (1.6-8.9); Platelet Count 217 K/mcL (140-400); Red Blood Count 2.66 M/mcL (4.19-5.50); Red Cell Distribution Width 14.1 % (11.5-14.5); Segmented Neutrophils % 93.5 %
[2017-03-08 04:32] LABS: Albumin 2.1 g/dL (3.5-5.7); Albumin/Globulin Ratio 0.5 (1.1-2.2); Bilirubin,Total 0.2 mg/dL (0.3-1.0); Calcium 7.3 mg/dL (8.6-10.3); Globulin 3.9 g/dL (2.4-3.5); Potassium 4.9 mEq/L (3.5-5.1)
[2017-03-08] MEDS: FentaNYL (PF) 1,000 MCG in 0.9 % Sodium Chloride 80 ML IVC SCH (05:04)
[2017-03-08 05:07] LABS: ABG Base Excess -5 mEq/L (-2 to 3); ABG HCO3 22 mEq/L (21-27); ABG Oxygen Saturation 99 % (95-98); ABG PCO2 47 mmHg (35-45); ABG PH 7.27 pH Units (7.32-7.45); ABG PO2 131 mmHg (85-104); ABG TCO2 23 mEq/L (20-26); Blood Gas Modality VC
[2017-03-08] MEDS: methylPREDNISolone 125 MG/2 ML VIAL IVP SCH (05:09)
[2017-03-08] MEDS: Pantoprazole 40 MG VIAL IVP SCH (05:11)
[2017-03-08 05:25] LABS: Protein/Creatinine Ratio,Urine 0.27 mg/mg (0.00-0.20)
--- NOTE | 2017-03-08 07:07 | Rheumatology Progress Note ---
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) including granulomatosis with polyangiitis (GPA), microscopic polyangiitis (MPA), renal-limited vasculitis (RLV), and eosinophilic granulomatosis with polyangiitis (EGPA, Churg-Zechariah) Urinalysis reveals moderate blood, 50-100 RBCs, > 300 mg/dL protein, and many hyaline, granular, and WBC casts Elevated urine protein/ creatinine ratio Renal biopsy was obtained and results are pending Bronchoscopy and BAL revealed excessive bleeding, pneumonitis due to aspiration Cover for vasculitis given his severe and multisystem findings, continue Solumedrol 500mg IV BID Labs pending: ANCA, KEL, MPO/PR3, HBV, HCV, Anti-GBM antibody, and quantiferon Gold Anticipate transfer for plasmapheresis due to ongoing pulmonary hemorrhage (2) Acute respiratory failure Status: Acute Intubated and sedated Management per pulmonology Qualifiers: Respiratory failure complication: hypoxia Qualified Code(s): J96.01 - Acute respiratory failure with hypoxia (3) Acute renal failure Status: Acute Acute kidney injury with hematuria/proteinuria. Nephrology following Temporary HD catheter placed 03/07/17 by IR If azotemia continues to worsen, patient will require dialysis Qualifiers: Acute renal failure type: unspecified Qualified Code(s): N17.9 - Acute kidney failure, unspecified (4) Aspiration pneumonia Status: Acute Bronchoscopy and BAL revealed excessive bleeding, pneumonitis due to aspiration BAL with Staph aureus, pulmonary hemorrhage in left upper lobe. Continue antibiotics Qualifiers: Aspiration pneumonia type: unspecified Laterality: left Lung location: upper lobe of lung Qualified Code(s): J69.0 - Pneumonitis due to inhalation of food and vomit (5) Guaiac positive stools Status: Acute Patient was treated for epistaxis 1 week ago at [place]. Positive FOBT, worsening anemia. History of polyps during previous colonoscopy. General surgery recommended performing endoscopy and colonoscopy once patient is more stable (6) Anemia Status: Acute Likely acute blood loss anemia Continue to monitor H&H and replace PRBCs if Hgb <7.0 Qualifiers: Anemia type: unspecified type Qualified Code(s): D64.9 - Anemia, unspecified (7) Diastolic heart failure Status: Acute TTE - Preserved EF, Diastolic heart failure with ejection fraction of 60% on Echocardiogram, previous EF 65% in 2016. CT Chest -Moderate pleural effusions, patchy opacities. 6 mm middle lobe nodule. Pulmonary edema on chest x-ray BNP 424, pulmonary edema with bibasilar rhonchi on exam, pedal edema Qualifiers: Heart failure chronicity: acute on chronic Qualified Code(s): I50.33 - Acute on chronic diastolic (congestive) heart failure (8) Acute encephalopathy Status: Acute Toxic and metabolic encephalopathy related to opioid use (9) COPD (chronic obstructive pulmonary disease) Status: Acute Management per pulmonology Qualifiers: COPD type: unspecified COPD Qualified Code(s): J44.9 - Chronic obstructive pulmonary disease, unspecified (10) Bipolar 1 disorder Status: Chronic Patient's reports anic episodes during previous steroid administration - Subjective Interval history: Patient seen and examined. He remains intubated and sedated. Patient's urine protein creatinne ratio is elevated and labs show no improvement. His azotemia continues to worsen. Urine output yesterday was approximately 75 mL. Patient was started on pulsed steroids. Nurse reports ongoing blood tinged secretions from ETT. Anticipate transfer to [facility] for plasmapheresis. Exam Vital Signs, Last 4 Hours Temp Pulse Resp BP Pulse Ox 03/08/17 06:20 22 94 03/08/17 06:00 76 24 98/53 92 03/08/17 05:00 87 22 113/60 94 03/08/17 03:54 81 21 110/58 92 03/08/17 03:48 22 92 03/08/17 03:31 98.1 F Exam: GENERAL: intubated and sedated WN/WD male HEENT: AT, dry MM, injected conjunctiva/ chemosis, no nasal or oral ulcers, no telangiectasia CV: RRR, no M/R/G, pitting pedal edema RESP: bibasilar rhonchi, mechanical breath sounds GI: Soft, NT, hypoactive BS, no organomegaly : singh in place MSK: no deformities, no joint swelling SKIN: warm, dry, no rash, no palpable nodules, multiple tattoos NEURO: sedated, responds to noxious stimuli PSYCH: unable to assess Objective Data 03/08/17 03:59 03/08/17 03:59 All other labs normal. - VTE Documentation of Mechanical Device: Intermittent pneumatic compression device Consult Discharge Plan - Plan Instructions: Acute Respiratory Distress Syndrome (DC), Acute Kidney Injury (DC ) Referrals: Noris Mancuso, [employer] [Primary Care Provider] - <Guicho Dove - Last Filed: 03/08/17 16:33> Date of Encounter: 03/08/17 Objective Data 03/08/17 03:59 03/08/17 03:59 All other labs normal. - Attending Attestation I examined this patient and my medical decision making was reviewed with the resident physician. I agree with the documented findings, disposition and treatment as described with these exceptions. Spoke with pulmonology today; reports having some blood tinged suction, creatinine worsening. Decision to transfer to [facility] for further eval and possibly plasmapheresis. Biopsy pending, ANCA/GBM antibody pending Continuing pulsed dosed steroids. Will be available if he returns to [place].
[2017-03-08] MEDS: Lithium Carbonate ER 300 MG TABLET.ER PO SCH (07:10)
[2017-03-08] MEDS: Chlorhexidine Rinse 15 ML MOUTHWASH MM SCH (07:18)
[2017-03-08] MEDS: levETIRAcetam 250 MG TABLET PO SCH (07:18)
--- NOTE | 2017-03-08 08:43 | Nephrology Progress Note ---
Date of Encounter: 03/08/17 Time of Encounter: 08:40 - Assessment and Plan (1) Acute renal failure Current Visit: No Status: Acute Patient has a clinical picture of acute kidney injury in the setting of altered mental status related to opioid use. This is complicated by acute respiratory failure requiring intubation mechanical ventilation. There is a question of aspiration pneumonia. He is also some evidence of pulmonary hemorrhage. Urinalysis yesterday showed a large amount of blood and 100 mg/dL of protein. Urine sediment exam was done in the office yesterday. It shows multiple cellular casts as well as RBCs white blood cells and bacteria. 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 For that reason the patient underwent a renal biopsy yesterday. Patient's renal function continues to worsen. There is consideration being given to transferring the patient to an outside hospital that has capability of plasmapheresis. At this is not accomplished within the next day or so we will go ahead and initiate dialysis. Patient has been started on high-dose steroids per allergy. We are hopeful that we will have some preliminary kidney biopsy results later today. Qualifiers: Acute renal failure type: unspecified Qualified Code(s): N17.9 - Acute kidney failure, unspecified (2) Bipolar 1 disorder Current Visit: No Status: Chronic (3) Hyponatremia Current Visit: No Status: Acute (4) Opiate overdose Current Visit: No Status: Acute Qualifiers: Encounter type: initial encounter Injury intent: accidental or unintentional Qualified Code(s): T40.601A - Poisoning by unspecified narcotics , accidental (unintentional), initial encounter (5) Acute respiratory failure Current Visit: Yes Status: Acute Qualifiers: Respiratory failure complication: hypoxia Qualified Code(s): J96.01 - Acute respiratory failure with hypoxia Subjective Interval history: The patient remained sedated on the ventilator. His azotemia continues to worsen. Urine output yesterday was approximately 75 mL. Based on the patient' s clinical presentation as well as urinalysis and urine sediment findings the patient underwent a kidney biopsy yesterday. Those results are pending. Objective - Vital Signs Vital signs: Vital Signs Temp Pulse Resp BP Pulse Ox 03/08/17 08:27 96.9 F L 03/08/17 08:00 71 20 99/60 94 03/08/17 07:30 72 03/08/17 07:00 71 20 98/56 94 03/08/17 06:20 22 94 03/08/17 06:00 76 24 98/53 92 03/08/17 05:00 87 22 113/60 94 03/08/17 03:54 81 21 110/58 92 03/08/17 03:48 22 92 03/08/17 03:31 98.1 F 03/08/17 02:52 83 03/08/17 02:48 82 22 104/62 92 03/08/17 01:54 86 22 108/58 92 03/08/17 01:50 88 21 108/58 91 03/08/17 01:00 87 23 120/67 92 03/08/17 00:00 90 20 120/67 94 03/07/17 23:41 20 93 03/07/17 23:33 92 20 119/69 03/07/17 23:21 98.3 F 03/07/17 21:55 22 93 03/07/17 21:49 92 22 109/67 92 03/07/17 20:49 92 23 129/75 97 03/07/17 20:11 21 96 03/07/17 20:00 94 22 125/77 93 03/07/17 19:17 98.9 F 03/07/17 19:00 100 20 130/77 93 03/07/17 18:32 25 95 03/07/17 18:00 100 24 124/79 95 03/07/17 17:00 104 22 123/72 96 03/07/17 16:00 105 22 125/73 94 03/07/17 15:53 21 94 03/07/17 15:51 99.5 F 03/07/17 15:00 102 22 133/79 100 03/07/17 14:22 111 8 147/90 100 03/07/17 14:18 112 13 100 03/07/17 14:13 112 12 153/115 100 03/07/17 14:00 102 22 133/79 100 03/07/17 13:06 23 186/106 95 03/07/17 13:00 110 24 147/78 100 03/07/17 12:05 100.3 F H 03/07/17 12:00 100.3 F H 103 22 172/89 95 03/07/17 11:03 21 155/98 94 03/07/17 11:00 105 20 164/90 94 03/07/17 10:00 105 21 155/98 93 03/07/17 09:58 20 148/82 94 03/07/17 09:00 99 21 148/82 95 Intake and Output 03/07/17 03/08/17 03/08/17 23:59 07:59 15:59 Intake Total 514 / 514 771 / 771 0 / 0 Output Total 25 / 25 300 / 300 0 / 0 Balance 489 / 489 471 / 471 0 / 0 Intake: IV Fluids 471 / 471 700 / 700 0 / 0 PRECEDEX Premix 400 mcg In 100 0 / 0 ml @ 0.2 MCG/KG/HR 5.125 mls/hr IVC .[id number] R[facility]IKA Rx#: [id number] FentaNYL (PF) 1,000 MCG In 0.9 71 / 71 100 / 100 % Sodium Chloride 80 ML @ 50 MCG/HR 5 mls/hr IVC CONT [facility]IK[facility] Rx #:[id number] Diprivan 1,000 mg In 100 ml @ 200 / 200 400 / 400 30 MCG/KG/MIN 18.45 mls/hr IVC .[id number] [facility]IKA Rx#:[id number] Zosyn Premix 3.375 GM/200 ML 3. 200 / 200 200 / 200 375 gm In 200 ml @ 50 mls/hr IVPB Q12H [facility]IKA Rx#:[id number] Oral 0 / 0 11 11 Tube Feeding 43 / 43 60 / 60 Free Water Intake Amount 0 / 0 Output: Catheter 25 / 25 300 / 300 0 / 0 2-way Urethral 0 / 0 0 / 0 Other: Meal npo Percent of Meal Consumed 0% Weight 108.9 kg Blood Glucose* 137 Patient Weight 03/08/17 23:59 Weight 108.9 kg - General Appearance Exam: Patient is sedated on the ventilator. Vital signs appear stable. Lungs coarse breath sounds. Heart regular rate and rhythm. Abdomen shows no guarding or rigidity. There is minimal lower extremity swelling. His temporary dialysis catheter in the femoral vein. - Lab 03/08/17 03:59 03/08/17 03:59 Most recent lab results ABG pH 7.27 pH Units (7.32-7.45) L 03/08/17 05:05 ABG pCO2 47 mmHg (35-45) H 03/08/17 05:05 ABG pO2 131 mmHg (85-104) H 03/08/17 05:05 ABG HCO3 22 mEq/L (21-27) 03/08/17 05:05 ABG O2 Saturation 99 % (95-98) H 03/08/17 05:05 Calcium 7.3 mg/dL (8.6-10.3) L 03/08/17 03:59 Phosphorus 5.3 mg/dL (2.7-4.5) H 03/06/17 02:25 Magnesium 1.7 mg/dL (1.6-2.6) 03/06/17 02:25 Urine Creatinine 244 mg/dL 03/08/17 04:29 Urine Sodium 23.4 mEq/L 03/06/17 11:03 Urine Total Protein 65 mg/dL 03/08/17 04:29 - VTE Documentation of Mechanical Device: Intermittent pneumatic compression device Consult Discharge Plan - Plan Referrals: Noris Mancuso, LISE [Primary Care Provider] -
[2017-03-08] MEDS ORDERED: Vancomycin 1 EACH in EMPTY BAG 1 EACH IVPB SCH (09:00)
--- NOTE | 2017-03-08 09:08 | Pulmonology Progress Note ---
Date of Encounter: 03/08/17 Time of Encounter: 09:05 Assessment and Plan (1) Acute respiratory failure Current Visit: Yes Status: Acute Patient developed acute respiratory failure and altered mental status requiring intubation and mechanical ventilation. Chest x-ray demonstrates bilateral pulmonary edema. Likely multifactorial, patient's history of diastolic heart failure in combination with suspected aspiration pneumonia. There is also concern for granulomatous polyangiitis versus MPA. 03/07: Not improving, continue with broad-spectrum antibiotics on vancomycin, Zosyn and Levaquin. Possibility of vasculitis, will consult rheumatology. 03/08: No improvements overnight. BAL grew staph aureus with broad sensitivity. Continues require 10 of PEEP, not able to CPAP at this time. Plan: - Continue mechanical ventilation with sedation - Bronchoscopy concerning for aspiration pneumonia, patient had bleeding from right upper lung, continue differential includes MPA and GPA - We will hold off and diuresis until further renal evaluation - Treatment of CAP with broad-spectrum antibiotics as mentioned above. Qualifiers: Respiratory failure complication: hypoxia Qualified Code(s): J96.01 - Acute respiratory failure with hypoxia (2) Pneumonia Current Visit: Yes Status: Acute Concerns for aspiration pneumonia. CT of the chest demonstrates: Moderate bilateral pleural effusions. Bilateral lower lobe collapse. Patchy heterogeneous pulmonary opacity within the aerated portions of lungs, greatest within the upper lobes, for which pneumonia, edema, or hemorrhage are considerations given patient history 03/07: Patient underwent bronchoscopy yesterday BAL with greater than 10,000 gram-positive cocci, findings of pulmonary hemorrhage and left upper lobe. - Zosyn and Levaquin (day 2/7) - Continue 7 days of treatment. Qualifiers: Qualified Code(s): J18.9 - Pneumonia, unspecified organism (3) Diastolic heart failure Current Visit: Yes Status: Acute Known history of diastolic heart failure with ejection fraction of 65% in 2016. - Currently has bilateral pulmonary edema with normal cardiac silhouette on chest x-ray, will repeat echocardiogram - Troponin times one nonsignificant - BNP 424 03/07: Continue to hold diuresis in the setting of worsening renal function, patient to receive HD catheter for potential HD. Echocardiogram from 03/06/2017: Impressions: LVEF 60%. Asymmetric basal septal hypertrophy. Indeterminate diastolic function. Normal right ventricular structure and function. No significant valvular dysfunction. Unable to estimate RVSP - patient on ventilator. Plan: - May require diuresis after renal function evaluated. Qualifiers: Heart failure chronicity: acute on chronic Qualified Code(s): I50.33 - Acute on chronic diastolic (congestive) heart failure (4) Acute renal failure Current Visit: No Status: Acute Acute kidney injury, previous renal function was normal. Suspected prerenal, considering differential diagnosis of pulmonary renal syndrome, immunologic such as Radha's or MPA, worsening renal function may also be due to RTA 03/07: Renal function continues to decline with current creatinine 3.66 up from 3.0 yesterday, urine sodium appropriate, urine osmole is low, potential for glomerular nephritis. Nephrology involved. Patient to undergo renal biopsy today, HD catheter placement today. Plan: - Strict intake and output monitoring - HD catheter - Avoid nephrotoxic medications and renally dosing of Biaxin. - Nephrology Following Qualifiers: Acute renal failure type: unspecified Qualified Code(s): N17.9 - Acute kidney failure, unspecified (5) Hyponatremia Current Visit: No Status: Acute Patient has a sodium of 123, consider hypervolemic hyponatremic cause, cannot rule out sodium wasting. Hyponatremia workup as listed above and acute kidney injury. - Nephrology consult (6) Opiate overdose Current Visit: No Status: Acute Patient with opiate overdose, nonintentional. Patient has stable prescribing history of opiates and gabapentin. All have been held. Qualifiers: Encounter type: initial encounter Injury intent: accidental or unintentional Qualified Code(s): T40.601A - Poisoning by unspecified narcotics , accidental (unintentional), initial encounter (7) Anemia Current Visit: No Status: Acute Anemia worse this morning. Hgb 7.9 down from 8.7 yesterday. Hgb 14.9 in August 2016. New onset anemia likely blood loss anemia. Patient has +FOBT upon admission. Seen by general surgery and waiting on Upper endoscopy and colonoscopy. DDX: GN, GPA, MPA Plan: Continue to monitor H&H Replace PRBCs if Hgb <7.0 Qualifiers: Anemia type: unspecified type Qualified Code(s): D64.9 - Anemia, unspecified (8) GI bleed Current Visit: Yes Status: Acute FOBT positive, patient has anemia. Significant colonoscopy history. Seen by general surgery who recommended endoscopy and colonoscopy by unstable at this time. Qualifiers: GI bleed type/associated pathology: unspecified gastrointestinal hemorrhage type Qualified Code(s): K92.2 - Gastrointestinal hemorrhage, unspecified (9) DVT prophylaxis Current Visit: Yes Status: Acute SCDs Subjective Interval history: Mr. Velázquez 52-year-old male intubated and sedated seen and evaluated patient bedside was morning. No acute changes overnight stable on mechanical ventilation. He tolerated renal biopsy yesterday, and HD catheter placement. Objective PUL Vital signs: Last Vital Signs Temp 96.9 F L 03/08/17 08:27 Pulse 73 03/08/17 09:00 Resp 20 03/08/17 09:00 BP 103/58 03/08/17 09:00 Pulse Ox 94 03/08/17 09:00 General appearance: other (Intubated sedated on mechanical ventilation) Eyes: injected, other (Scleral edema) ENT: oropharynx moist Neck: supple Effort: mildly labored Auscultation: bilateral: rhonchi Cardiovascular: regular rate and rhythm Gastrointestinal: normoactive bowel sounds, non-tender, non-distended Integumentary: normal Extremities: no cyanosis, no clubbing, pink and warm, edema (Patient has trace edema in bilateral ankles, scrotal edema, trace edema in bilateral upper extremities and scleral edema) Musculoskeletal: no deformities Ventilator Settings Ventilator Settings: Ventilator Settings, Last 8 Hours Ventilator Mode VC+ Ventilator Mode VC+ Ventilator Mode VC+ Ventilator Mode A/C Ventilator Mode A/C Ventilator Mode VC+ Ventilator Mode A/C Ventilator Mode A/C Ventilator Mode A/C Ventilator Mode A/C Ventilator Mode A/C Ventilator Tidal Volume 400 Setting Ventilator Tidal Volume 400 Setting Ventilator Tidal Volume 400 Setting Ventilator Tidal Volume 400 Setting Ventilator Tidal Volume 400 Setting Ventilator Tidal Volume 400 Setting Ventilator Tidal Volume 400 Setting Ventilator Tidal Volume 400 Setting Ventilator Tidal Volume 400 Setting Ventilator Tidal Volume 400 Setting Ventilator Tidal Volume 400 Setting Ventilator Respiratory Rate 18 Setting Ventilator Respiratory Rate 18 Setting Ventilator Respiratory Rate 18 Setting Ventilator Respiratory Rate 18 Setting Ventilator Respiratory Rate 18 Setting Ventilator Respiratory Rate 18 Setting Ventilator Respiratory Rate 18 Setting Ventilator Respiratory Rate 18 Setting Ventilator Respiratory Rate 18 Setting Ventilator Respiratory Rate 18 Setting Ventilator Respiratory Rate 18 Setting Actual Respiratory Rate 20 Actual Respiratory Rate 24 Actual Respiratory Rate 20 Actual Respiratory Rate 22 Actual Respiratory Rate 24 Actual Respiratory Rate 21 Actual Respiratory Rate 21 Actual Respiratory Rate 20 Actual Respiratory Rate 22 Actual Respiratory Rate 21 Positive End Expiratory 10 Pressure Positive End Expiratory 10 Pressure Positive End Expiratory 10 Pressure Positive End Expiratory 10 Pressure Positive End Expiratory 10 Pressure Positive End Expiratory 10 Pressure Positive End Expiratory 10 Pressure Positive End Expiratory 10 Pressure Positive End Expiratory 10 Pressure Positive End Expiratory 10 Pressure Positive End Expiratory 10 Pressure Peak Inspiratory Airway 32 Pressure Peak Inspiratory Airway 33 Pressure Peak Inspiratory Airway 30 Pressure Peak Inspiratory Airway 27 Pressure Peak Inspiratory Airway 26 Pressure Peak Inspiratory Airway 29 Pressure Peak Inspiratory Airway 37 Pressure Peak Inspiratory Airway 31 Pressure Peak Inspiratory Airway 34 Pressure Peak Inspiratory Airway 34 Pressure Results - Laboratory Findings CBC and BMP: 03/08/17 03:59 03/08/17 03:59 ABG ABG pH 7.27 pH Units (7.32-7.45) L 03/08/17 05:05 ABG pCO2 47 mmHg (35-45) H 03/08/17 05:05 ABG pO2 131 mmHg (85-104) H 03/08/17 05:05 ABG O2 Saturation 99 % (95-98) H 03/08/17 05:05 PT/INR, D-dimer PT 14.0 Seconds (9.4-12.1) H 03/07/17 07:46 Abnormal lab findings: Abnormal lab results WBC 11.4 K/mcL (4.3-11.1) H 03/08/17 03:59 RBC 2.66 M/mcL (4.19-5.50) L 03/08/17 03:59 Hgb 7.6 g/dL (12.9-16.9) L 03/08/17 03:59 Hct 22.6 % (37.5-50.1) L 03/08/17 03:59 Neutrophils # 10.6 K/mcL (1.6-8.9) H 03/08/17 03:59 Lymphocytes # 0.4 K/mcL (0.6-4.6) L 03/08/17 03:59 PT 14.0 Seconds (9.4-12.1) H 03/07/17 07:46 APTT 38.3 Seconds (26.0-36.0) H 03/07/17 07:46 Fibrinogen 427 mg/dL (169-393) H 03/07/17 07:46 ABG pH 7.27 pH Units (7.32-7.45) L 03/08/17 05:05 ABG pCO2 47 mmHg (35-45) H 03/08/17 05:05 ABG pO2 131 mmHg (85-104) H 03/08/17 05:05 ABG O2 Saturation 99 % (95-98) H 03/08/17 05:05 ABG Base Excess -5 mEq/L (-2 to 3) L 03/08/17 05:05 Sodium 121 mEq/L (136-145) L 03/08/17 03:59 Chloride 90 mEq/L (98-107) L 03/08/17 03:59 Carbon Dioxide 22 mEq/L (23-29) L 03/08/17 03:59 BUN 57 mg/dL (6-20) H 03/08/17 03:59 Creatinine 3.81 mg/dL (0.70-1.30) H 03/08/17 03:59 Est GFR ( Amer) 20 (> 60) L 03/08/17 03:59 Est GFR (Non-Af Amer) 17 (> 60) L 03/08/17 03:59 Glucose 142 mg/dL (70-105) H 03/08/17 03:59 POC Glucose 160 (58-89) H 03/08/17 05:13 Serum Osmolality 276 mOsm/kg (280-300) L 03/06/17 07:38 Calculated Osmolality 270 (280-300) L 03/08/17 03:59 Calcium 7.3 mg/dL (8.6-10.3) L 03/08/17 03:59 Phosphorus 5.3 mg/dL (2.7-4.5) H 03/06/17 02:25 Total Bilirubin 0.2 mg/dL (0.3-1.0) L 03/08/17 03:59 AST 8 Units/L (13-39) L 03/08/17 03:59 ALT 6 Units/L (7-52) L 03/08/17 03:59 B-Natriuretic Peptide 424 pg/mL (Less than 100) H 03/06/17 07:38 Serum Total Protein 6.0 g/dL (6.4-8.9) L 03/08/17 03:59 Albumin 2.1 g/dL (3.5-5.7) L 03/08/17 03:59 Globulin 3.9 g/dL (2.4-3.5) H 03/08/17 03:59 Albumin/Globulin Ratio 0.5 (1.1-2.2) L 03/08/17 03:59 TSH 0.079 mcIU/mL (0.340-5.600) L 03/05/17 07:07 Free T3 2.37 pg/mL (2.50-3.90) L 03/06/17 07:38 Urine Osmolality 253 mOsm/kg (300-1090) L 03/06/17 11:03 Protein/Creatinin Ratio 0.27 mg/mg (0.00-0.20) H 03/08/17 04:29 Fluid Appearance Cloudy (Clear) A 03/06/17 16:17 - Microbiology Findings Microbiology Findings: Microbiology, Last 48 Hours 03/06/17 14:50 Sputum Culture - Final Sputum Staphylococcus aureus 03/06/17 16:17 Respiratory Culture - Preliminary Left Upper Lobe Lung Staphylococcus aureus 03/06/17 02:25 Blood Culture - Preliminary Peripheral Venipuncture No growth. 03/06/17 02:25 Blood Culture - Preliminary Peripheral Venipuncture No growth. 03/06/17 16:17 Gram Stain - Final Left Upper Lobe Lung - Clinical Findings Intake & Output: Intake & Output 03/07/17 03/08/17 03/08/17 23:59 07:59 15:59 Intake Total 514 / 514 771 / 771 0 / 0 Output Total 25 / 25 300 / 300 0 / 0 Balance 489 / 489 471 / 471 0 / 0 Weight 108.9 kg - VTE Documentation of Mechanical Device: Intermittent pneumatic compression device Consult Discharge Plan - Plan Referrals: Noris Mancuso, [employer] [Primary Care Provider] -
[2017-03-08 09:14] LABS: Vancomycin,Random 14.1 mcg/mL
[2017-03-08] MEDS: Dexmedetomidine HCl 400 MCG/100 ML MLS IVC SCH (09:47)
[2017-03-08] MEDS ORDERED: Vancomycin 1,000 MG in D5% in Water 250 ML IVPB SCH (10:00)
[2017-03-08 10:03] VITALS: BP 102/56
[2017-03-08 10:31] LABS: Hepatitis B Surface Antigen Nonreactive (Nonreactive); Hepatitis C Virus Antibody Nonreactive (Nonreactive)
--- NOTE | 2017-03-08 11:19 | Discharge Summary ---
<DiamanteChandler Harrison - Last Filed: 03/08/17 11:14> Date of Encounter: 03/08/17 Time of Encounter: 08:00 - Discharge Diagnosis (1) Acute respiratory failure Priority: Primary Status: Acute Qualifiers: Respiratory failure complication: hypoxia Qualified Code(s): J96.01 - Acute respiratory failure with hypoxia (2) Pneumonia Priority: Primary Status: Acute Qualifiers: Qualified Code(s): J18.9 - Pneumonia, unspecified organism (3) Diastolic heart failure Priority: Secondary Status: Acute Qualifiers: Heart failure chronicity: acute on chronic Qualified Code(s): I50.33 - Acute on chronic diastolic (congestive) heart failure (4) Acute renal failure Priority: Primary Status: Acute Qualifiers: Acute renal failure type: unspecified Qualified Code(s): N17.9 - Acute kidney failure, unspecified (5) Hyponatremia Priority: Primary Status: Acute (6) Opiate overdose Priority: Secondary Status: Acute Qualifiers: Encounter type: initial encounter Injury intent: accidental or unintentional Qualified Code(s): T40.601A - Poisoning by unspecified narcotics , accidental (unintentional), initial encounter (7) Anemia Priority: Primary Status: Acute Qualifiers: Anemia type: unspecified type Qualified Code(s): D64.9 - Anemia, unspecified (8) GI bleed Priority: Primary Status: Acute Qualifiers: GI bleed type/associated pathology: unspecified gastrointestinal hemorrhage type Qualified Code(s): K92.2 - Gastrointestinal hemorrhage, unspecified (9) DVT prophylaxis Priority: Secondary Status: Acute - Discharge Medications Home Medications: ALPRAZolam [Xanax 0.5 MG Tablet] 1 mg PO BID PRN 10/19/14 [History] Atorvastatin [Lipitor] 40 mg PO HS 10/19/14 [History] Diltiazem CD (24hr) [Cardizem CD] 300 mg PO DAILY 10/19/14 [History] [place] Carbonate ER [Lithobid] 600 mg PO BID 10/19/14 [History] OxyCODONE Immed Rel [Roxicodone 15 MG] 15 mg PO Q4HR PRN 10/19/14 [History] Paroxetine [Paxil] 60 mg PO DAILY 10/19/14 [History] Tiotropium [Spiriva] 18 mcg IH DAILY 10/19/14 [History] Pantoprazole Sodium [Protonix] 40 mg PO QAM 06/10/15 [History] Lisinopril-HCTZ 20-12.5 [Prinzide 20-12.5] 1 tab PO DAILY 09/15/15 [History] Albuterol Sulfate [Albuterol Inhaler] 1 - 2 puff IH Q6HR PRN #1 [id number] 03/02 [Rx] ALPRAZolam [Xanax 1 MG Tablet] 2 mg PO HS PRN 03/05/17 [History] Gabapentin [Neurontin] 800 mg PO TID 03/05/17 [History] LevETIRAcetam [Roweepra] 500 mg PO BID 03/05/17 [History] Tizanidine HCl 4 mg PO BID PRN 03/05/17 [History] Allergies/Adverse Reactions: 3 Allergy/AdvReac Type Severity Reaction Status Date / Time cephalexin [From Keflex] Allergy Anaphylaxis Verified 03/02/16 16:30 Latex, Natural Rubber Allergy Hives Verified 03/02/16 16:30 Labs on day of discharge: Labs from last 24 hours 03/08/17 03/08/17 03/08/17 05:13 05:05 04:29 WBC RBC Hgb Hct MCV MCH MCHC RDW Plt Count MPV Immature Gran % Seg Neutrophils % Lymphocytes % Monocytes % Eosinophils % Basophils % Neutrophils # Lymphocytes # Monocytes # Eosinophils # Basophils # ABG pH 7.27 L ABG pCO2 47 H ABG pO2 131 H ABG HCO3 22 ABG Total CO2 23 ABG O2 Saturation 99 H ABG Base Excess -5 L Blood Gas Modality VC Inspired O2 40.0 Sodium Potassium Chloride Carbon Dioxide BUN Creatinine Est GFR ( Amer) Est GFR (Non-Af Amer) BUN/Creatinine Ratio Glucose POC Glucose 160 H Calculated Osmolality Calcium Total Bilirubin AST ALT Alkaline Phosphatase Serum Total Protein Albumin Globulin Albumin/Globulin Ratio Urine Creatinine 244 Protein/Creatinin Ratio 0.27 H Urine Total Protein 65 Random Vancomycin Hep Bs Antigen Hepatitis C Ab Screen 03/08/17 03/08/17 03/07/17 03:59 03:59 23:22 WBC 11.4 H RBC 2.66 L Hgb 7.6 L Hct 22.6 L MCV 85.0 MCH 28.6 MCHC 33.6 RDW 14.1 Plt Count 217 MPV 9.6 Immature Gran % 0.5 Seg Neutrophils % 93.5 Lymphocytes % 3.7 Monocytes % 2.2 Eosinophils % 0.0 Basophils % 0.1 Neutrophils # 10.6 H Lymphocytes # 0.4 L Monocytes # 0.3 Eosinophils # 0.0 Basophils # 0.0 ABG pH ABG pCO2 ABG pO2 ABG HCO3 ABG Total CO2 ABG O2 Saturation ABG Base Excess Blood Gas Modality Inspired O2 Sodium 121 L Potassium 4.9 Chloride 90 L Carbon Dioxide 22 L BUN 57 H Creatinine 3.81 H Est GFR ( Amer) 20 L Est GFR (Non-Af Amer) 17 L BUN/Creatinine Ratio 15 Glucose 142 H POC Glucose 137 H Calculated Osmolality 270 L Calcium 7.3 L Total Bilirubin 0.2 L AST 8 L ALT 6 L Alkaline Phosphatase 56 Serum Total Protein 6.0 L Albumin 2.1 L Globulin 3.9 H Albumin/Globulin Ratio 0.5 L Urine Creatinine Protein/Creatinin Ratio Urine Total Protein Random Vancomycin 14.1 Hep Bs Antigen Hepatitis C Ab Screen 03/07/17 03/07/17 03/07/17 17:54 16:00 11:41 WBC RBC Hgb Hct MCV MCH MCHC RDW Plt Count MPV Immature Gran % Seg Neutrophils % Lymphocytes % Monocytes % Eosinophils % Basophils % Neutrophils # Lymphocytes # Monocytes # Eosinophils # Basophils # ABG pH ABG pCO2 ABG pO2 ABG HCO3 ABG Total CO2 ABG O2 Saturation ABG Base Excess Blood Gas Modality Inspired O2 Sodium Potassium Chloride Carbon Dioxide BUN Creatinine Est GFR ( Amer) Est GFR (Non-Af Amer) BUN/Creatinine Ratio Glucose POC Glucose 103 H 99 H Calculated Osmolality Calcium Total Bilirubin AST ALT Alkaline Phosphatase Serum Total Protein Albumin Globulin Albumin/Globulin Ratio Urine Creatinine Protein/Creatinin Ratio Urine Total Protein Random Vancomycin Hep Bs Antigen Nonreactive Hepatitis C Ab Screen Nonreactive Preliminary micro results at discharge 03/06/17 02:25 Blood Culture - Preliminary Peripheral Venipuncture No growth. 03/06/17 02:25 Blood Culture - Preliminary Peripheral Venipuncture No growth. - Impressions ITS Impressions Head CT 03/05/17 23:16 IMPRESSION: Limited study with no definite evidence for acute hemorrhage or ischemia. Consider repeat imaging once the patient is able to remain still. D/ / Vito Rose MD / Vito Rose MD Interpreting Provider: Vito Rose MD Chest X-Ray 03/06/17 00:26 IMPRESSION: Chest: 1. The endotracheal tube tip is approximately 2 cm above the ciara. 2. Pulmonary edema with left lower lobe atelectasis or pneumonia. Abdomen: The enteric tube is in good position in the stomach. D/ / Vito Rose MD / Vito Rose MD Interpreting Provider: Vito Rose MD X-Ray 03/06/17 00:26 IMPRESSION: Chest: 1. The endotracheal tube tip is approximately 2 cm above the ciara. 2. Pulmonary edema with left lower lobe atelectasis or pneumonia. Abdomen: The enteric tube is in good position in the stomach. D/ / Vito Rose MD / Vito Rose MD Interpreting Provider: Vito Rose MD Echocardiogram 03/06/17 08:25 Impressions: LVEF 60%. Asymmetric basal septal hypertrophy. Indeterminate diastolic function. Normal right ventricular structure and function. No significant valvular dysfunction. Unable to estimate RVSP - patient on ventilator. Left Ventricular Wall Motion: Rest Echo Findings All wall segments showed normal motion. Findings: Study Quality * Technically adequate exam. ECG Findings * Normal sinus rhythm. Left Ventricle * LVEF 60%. * Asymmetric basal septal hypertrophy. * Normal LV size. * Indeterminate diastolic function. Right Ventricle * Normal right ventricular structure and function. Left Atrium * Normal left atrial size. Right Atrium * Normal right atrial size. Aortic Valve * No aortic regurgitation. * Aortic valve not well visualized. * No aortic stenosis. Mitral Valve * No mitral regurgitation. * Normal mitral valve structure. * No mitral stenosis. Tricuspid Valve * Tricuspid valve not well visualized. * Trace tricuspid regurgitation. Pulmonic Valve * Pulmonic valve is not well visualized. * No pulmonic stenosis. * No pulmonic regurgitation. Pulmonary Artery * Pulmonary artery not well visualized. Aorta * Normally sized aortic root. Pericardium * There is no pericardial effusion present. Interatrial Septum * No evidence of PFO by color Doppler. IVC * Dilated IVC - patient on ventilator. Chest CT 03/06/17 11:30 IMPRESSION: Endotracheal tube extends to the orifice of the right mainstem bronchus and should be retracted approximately 2 cm. Moderate bilateral pleural effusions. Bilateral lower lobe collapse. Patchy heterogeneous pulmonary opacity within the aerated portions of lungs, greatest within the upper lobes, for which pneumonia, edema, or hemorrhage are considerations given patient history. 6 mm right middle lobe pulmonary nodule, with follow-up recommendations as below. Fleischner Society guidelines for follow-up and management of incidentally detected pulmonary nodules:Single Solid Nodule:Nodule size less than 6 mmIn a low-risk patient, no routine follow-up.In a high-risk patient, optional CT at 12 months. Nodule size equals 6-8 mmIn a low-risk patient, CT at 6-12 months, then consider CT at 18-24 months.In a high-risk patient, CT at 6-12 months, then CT at 18-24 months.Nodule size greater than 8 mmIn a low-risk patient, consider CT, PET/CT, or tissue sampling at 3 months.In a high-risk patient, consider CT, PET/CT, or tissue sampling at 3 months.Multiple Solid Nodules:Nodule size less than 6 mmIn a low-risk patient, no routine follow-up.In a high-risk patient, optional CT at 12 months. Nodule size equals 6-8 mmIn a low-risk patient, CT at 3-6 months, then consider CT at 18-24 months.In a high-risk patient, CT at 3-6 months, then CT at 18-24 months.Nodule size greater than 8 mmIn a low-risk patient, CT at 3-6 months, then consider CT at 18-24 months.In a high-risk patient, CT at 3-6 months, then CT at 18-24 months.- Low risk patients include individuals with minimal or absent history of smoking and other known risk factors.- High risk patients include individuals with a history or smoking or known risk factors.Radiology 2017 http://pubs.rsna.org/doi/full/10.1148/radiol.[email or web address] Results were called by the radiology call center. D/ / Steven Earl MD / Steven Earl MD Interpreting Provider: Steven Earl MD Retroperitoneum Ultrasound 03/06/17 16:45 IMPRESSION: 1. No evidence of hydronephrosis or hydroureter. 2. Borderline increased echogenicity of the right kidney, raise the possibility of medical renal disease. 3. Sanchez catheter within urinary bladder. The urinary bladder wall is thickened, but the urinary bladder is incomplete distended. Correlate with clinical evidence of cystitis. D/ / Aubrey Dawkins MD / Aubrey Dawkins MD Interpreting Provider: Aubrey Dawkins MD Guidance Needle Placement Ultrasound 03/07/17 00:00 IMPRESSION: Successful CT guided core biopsy left kidney. D/ / Newton Sánchez MD / Newton Sánchez MD Interpreting Provider: Newton Sánchez MD Insertion Non-Tunneled Catheter 03/07/17 00:00 IMPRESSION: Successful CT guided core biopsy left kidney. D/ / Newton Sánchez MD / Newton Sánchez MD Interpreting Provider: Newton Sánchez MD X-Ray 03/07/17 00:00 IMPRESSION: Right femoral dual-lumen CVC with tip extending to the level of the L1 vertebral body. D/ / 03/07/2017 15:32:30 Augusto Menchaca MD / gold Interpreting Provider: Augusto Menchaca MD Renal Biopsy CT 03/07/17 00:00 IMPRESSION: Successful CT guided core biopsy left kidney. D/ / Newton Sánchez MD / Newton Sánchez MD Interpreting Provider: Newton Sánchez MD Chest X-Ray 03/07/17 09:24 IMPRESSION: 1. Endotracheal tube tip approximately 4.9 cm above the ciara. 2. New bilateral airspace and interstitial opacities with associated pleural effusions. Findings suggest pulmonary edema. D/ / 03/07/2017 10:45:52 Olesya Thakur MD / Rula Taylor Interpreting Provider: Olesya Thakur MD Date of admission: 03/05/17 00:51 Primary care physician: Noris Mancuso CNP Consults: 03/05/17 11:24 Consult to Surgery [CONS] Routine Consulting Provider: [facility] Reason for Consult: concern for UGIB, positive stool occult blood Call Completed: Yes 03/06/17 00:45 Consult to Critical Care [CONS] Routine Consulting Provider: Pulm Crit [facility] Reason for Consult: Pt is intubated Call Completed: No 03/06/17 10:46 Consult to Nephrology [CONS] Routine Consulting Provider: Kidney & HTN Spclst ALISHA Reason for Consult: worsening LUCILA Call Completed: Yes 03/07/17 11:19 Consult to Interventional Radiology [CONS] Routine Consulting Provider: Radiology Interventional Cols Reason for Consult: Kidney biopsy, HD catheter Call Completed: Yes 03/07/17 14:44 Consult to Physician [CONS] Routine Consulting Provider: Guicho Dove Reason for Consult: Possible vasculitis Time Notified: 14:01 Call Completed: Yes Discharging clinician: Chandler Bobby Anticipated date of discharge: 03/08/17 - Patient Status Disposition: Transfer Short-Term Hosp Condition: Critical - Discharge Instructions Instructions: Acute Respiratory Distress Syndrome (DC), Acute Kidney Injury (DC ) Follow Up With: Noris Mancuso CNP [Primary Care Provider] - - Hospital Course Hospital course: Mr. Velázquez is a 52 year old male history of hypertension and chronic back pain was transferred from [place] emergency department on July 302017 with altered mental status. He had taken to much of his opiate pain medications resulting in drowsiness. Upon evaluation he was found to have normal anion gap metabolic acidosis, hyponatremia, a low hemoglobin dropped from prior laboratory results in the [facility] was positive. There is concern for upper GI bleed and gastroenterology was consult who recommended holding off on endoscopy and colonoscopy in the setting of hyponatremia and altered mental status. Mr. Velázquez became more altered and developed respiratory failure resulting in intubation and mechanical ventilation. Chest x-ray demonstrated bilateral pulmonary edema and review of laboratory results demonstrate worsening renal function. Labs are collected for his hyponatremia and renal output which demonstrated hypervolemia but also dilute urine output with a normal sodium. Nephrology was consult for worsening renal function and evaluation. He was concerned that he may have a vasculitis contributing to his renal issues. He underwent a chest CT which demonstrated concerns for aspiration pneumonia, there is also concern that there may be pulmonary hemorrhage as the patient's hemoglobin continued to drop. He underwent bronchoscopy with BAL and findings of left upper lobe hemorrhage. With further concerns of vasculitis rheumatology was consult and recommended pulse dose steroids. Mr. Velázquez underwent renal biopsy and HD catheter placement on 03/17/2017. Pulse dose steroids were started after the biopsy. He continued to require mechanical ventilation with a PEEP of 10 unable to do CPAP trial. With his worsening renal function and no improvement in his hyponatremia there was concern that he may have GN and he was transferred to [facility] for potential plasmapheresis. - Time Spent with Patient Total time spent providing and/or coordinating discharge services: Physical Examination Vital Signs: Vital Signs, Last 4 Hours Temp Pulse Resp BP Pulse Ox 03/08/17 10:00 75 24 102/56 95 03/08/17 09:58 19 103/58 95 03/08/17 09:00 73 20 103/58 94 03/08/17 08:53 20 103/58 94 03/08/17 08:27 96.9 F L 03/08/17 08:00 71 20 99/60 94 03/08/17 07:30 72 General appearance: no acute distress, other (Patient on mechanical ventilation) Eyes: nonicteric ENT: oropharynx moist Neck: supple Effort: normal Auscultation: bilateral: rhonchi Cardiovascular: regular rate and rhythm Gastrointestinal: normoactive bowel sounds, absent bowel sounds, soft, non- tender Integumentary: normal Extremities: no cyanosis, no edema, pink and warm Musculoskeletal: no deformities - VTE Documentation of Mechanical Device: Intermittent pneumatic compression device <Ab Christensen S - Last Filed: 03/08/17 21:07> Date of Encounter: 03/08/17 Labs on day of discharge: Labs from last 24 hours 03/08/17 03/08/17 03/08/17 05:13 05:05 04:29 WBC RBC Hgb Hct MCV MCH MCHC RDW Plt Count MPV Immature Gran % Seg Neutrophils % Lymphocytes % Monocytes % Eosinophils % Basophils % Neutrophils # Lymphocytes # Monocytes # Eosinophils # Basophils # ABG pH 7.27 L ABG pCO2 47 H ABG pO2 131 H ABG HCO3 22 ABG Total CO2 23 ABG O2 Saturation 99 H ABG Base Excess -5 L Blood Gas Modality VC Inspired O2 40.0 Sodium Potassium Chloride Carbon Dioxide BUN Creatinine Est GFR ( Amer) Est GFR (Non-Af Amer) BUN/Creatinine Ratio Glucose POC Glucose 160 H Calculated Osmolality Calcium Total Bilirubin AST ALT Alkaline Phosphatase Serum Total Protein Albumin Globulin Albumin/Globulin Ratio Urine Creatinine 244 Protein/Creatinin Ratio 0.27 H Urine Total Protein 65 Random Vancomycin Hep Bs Antigen Hepatitis C Ab Screen 03/08/17 03/08/17 03/07/17 03:59 03:59 23:22 WBC 11.4 H RBC 2.66 L Hgb 7.6 L Hct 22.6 L MCV 85.0 MCH 28.6 MCHC 33.6 RDW 14.1 Plt Count 217 MPV 9.6 Immature Gran % 0.5 Seg Neutrophils % 93.5 Lymphocytes % 3.7 Monocytes % 2.2 Eosinophils % 0.0 Basophils % 0.1 Neutrophils # 10.6 H Lymphocytes # 0.4 L Monocytes # 0.3 Eosinophils # 0.0 Basophils # 0.0 ABG pH ABG pCO2 ABG pO2 ABG HCO3 ABG Total CO2 ABG O2 Saturation ABG Base Excess Blood Gas Modality Inspired O2 Sodium 121 L Potassium 4.9 Chloride 90 L Carbon Dioxide 22 L BUN 57 H Creatinine 3.81 H Est GFR ( Amer) 20 L Est GFR (Non-Af Amer) 17 L BUN/Creatinine Ratio 15 Glucose 142 H POC Glucose 137 H Calculated Osmolality 270 L Calcium 7.3 L Total Bilirubin 0.2 L AST 8 L ALT 6 L Alkaline Phosphatase 56 Serum Total Protein 6.0 L Albumin 2.1 L Globulin 3.9 H Albumin/Globulin Ratio 0.5 L Urine Creatinine Protein/Creatinin Ratio Urine Total Protein Random Vancomycin 14.1 Hep Bs Antigen Hepatitis C Ab Screen 03/07/17 16:00 WBC RBC Hgb Hct MCV MCH MCHC RDW Plt Count MPV Immature Gran % Seg Neutrophils % Lymphocytes % Monocytes % Eosinophils % Basophils % Neutrophils # Lymphocytes # Monocytes # Eosinophils # Basophils # ABG pH ABG pCO2 ABG pO2 ABG HCO3 ABG Total CO2 ABG O2 Saturation ABG Base Excess Blood Gas Modality Inspired O2 Sodium Potassium Chloride Carbon Dioxide BUN Creatinine Est GFR ( Amer) Est GFR (Non-Af Amer) BUN/Creatinine Ratio Glucose POC Glucose Calculated Osmolality Calcium Total Bilirubin AST ALT Alkaline Phosphatase Serum Total Protein Albumin Globulin Albumin/Globulin Ratio Urine Creatinine Protein/Creatinin Ratio Urine Total Protein Random Vancomycin Hep Bs Antigen Nonreactive Hepatitis C Ab Screen Nonreactive Preliminary micro results at discharge 03/06/17 02:25 Blood Culture - Preliminary Peripheral Venipuncture No growth. 03/06/17 02:25 Blood Culture - Preliminary Peripheral Venipuncture No growth. - Impressions ITS Impressions Head CT 03/05/17 23:16 IMPRESSION: Limited study with no definite evidence for acute hemorrhage or ischemia. Consider repeat imaging once the patient is able to remain still. D/ / Vito Rose MD / Vito Rose MD Interpreting Provider: Vito Rose MD Chest X-Ray 03/06/17 00:26 IMPRESSION: Chest: 1. The endotracheal tube tip is approximately 2 cm above the ciara. 2. Pulmonary edema with left lower lobe atelectasis or pneumonia. Abdomen: The enteric tube is in good position in the stomach. D/ / Vito Rose MD / Vito Rose MD Interpreting Provider: Vito Rose MD X-Ray 03/06/17 00:26 IMPRESSION: Chest: 1. The endotracheal tube tip is approximately 2 cm above the ciara. 2. Pulmonary edema with left lower lobe atelectasis or pneumonia. Abdomen: The enteric tube is in good position in the stomach. D/ / Vito Rose MD / Vito Rose MD Interpreting Provider: Vito Rose MD Echocardiogram 03/06/17 08:25 Impressions: LVEF 60%. Asymmetric basal septal hypertrophy. Indeterminate diastolic function. Normal right ventricular structure and function. No significant valvular dysfunction. Unable to estimate RVSP - patient on ventilator. Left Ventricular Wall Motion: Rest Echo Findings All wall segments showed normal motion. Findings: Study Quality * Technically adequate exam. ECG Findings * Normal sinus rhythm. Left Ventricle * LVEF 60%. * Asymmetric basal septal hypertrophy. * Normal LV size. * Indeterminate diastolic function. Right Ventricle * Normal right ventricular structure and function. Left Atrium * Normal left atrial size. Right Atrium * Normal right atrial size. Aortic Valve * No aortic regurgitation. * Aortic valve not well visualized. * No aortic stenosis. Mitral Valve * No mitral regurgitation. * Normal mitral valve structure. * No mitral stenosis. Tricuspid Valve * Tricuspid valve not well visualized. * Trace tricuspid regurgitation. Pulmonic Valve * Pulmonic valve is not well visualized. * No pulmonic stenosis. * No pulmonic regurgitation. Pulmonary Artery * Pulmonary artery not well visualized. Aorta * Normally sized aortic root. Pericardium * There is no pericardial effusion present. Interatrial Septum * No evidence of PFO by color Doppler. IVC * Dilated IVC - patient on ventilator. Chest CT 03/06/17 11:30 IMPRESSION: Endotracheal tube extends to the orifice of the right mainstem bronchus and should be retracted approximately 2 cm. Moderate bilateral pleural effusions. Bilateral lower lobe collapse. Patchy heterogeneous pulmonary opacity within the aerated portions of lungs, greatest within the upper lobes, for which pneumonia, edema, or hemorrhage are considerations given patient history. 6 mm right middle lobe pulmonary nodule, with follow-up recommendations as below. Fleischner Society guidelines for follow-up and management of incidentally detected pulmonary nodules:Single Solid Nodule:Nodule size less than 6 mmIn a low-risk patient, no routine follow-up.In a high-risk patient, optional CT at 12 months. Nodule size equals 6-8 mmIn a low-risk patient, CT at 6-12 months, then consider CT at 18-24 months.In a high-risk patient, CT at 6-12 months, then CT at 18-24 months.Nodule size greater than 8 mmIn a low-risk patient, consider CT, PET/CT, or tissue sampling at 3 months.In a high-risk patient, consider CT, PET/CT, or tissue sampling at 3 months.Multiple Solid Nodules:Nodule size less than 6 mmIn a low-risk patient, no routine follow-up.In a high-risk patient, optional CT at 12 months. Nodule size equals 6-8 mmIn a low-risk patient, CT at 3-6 months, then consider CT at 18-24 months.In a high-risk patient, CT at 3-6 months, then CT at 18-24 months.Nodule size greater than 8 mmIn a low-risk patient, CT at 3-6 months, then consider CT at 18-24 months.In a high-risk patient, CT at 3-6 months, then CT at 18-24 months.- Low risk patients include individuals with minimal or absent history of smoking and other known risk factors.- High risk patients include individuals with a history or smoking or known risk factors.Radiology 2017 http://pubs.rsna.org/doi/full/10.1148/radiol.3214910285 Results were called by the radiology call center. D/ / Steven Earl MD / Steven Earl MD Interpreting Provider: Steven Earl MD Retroperitoneum Ultrasound 03/06/17 16:45 IMPRESSION: 1. No evidence of hydronephrosis or hydroureter. 2. Borderline increased echogenicity of the right kidney, raise the possibility of medical renal disease. 3. Sanchez catheter within urinary bladder. The urinary bladder wall is thickened, but the urinary bladder is incomplete distended. Correlate with clinical evidence of cystitis. D/ / Aubrey Dawkins MD / Aubrey Dawkins MD Interpreting Provider: Aubrey Dawkins MD Guidance Needle Placement Ultrasound 03/07/17 00:00 IMPRESSION: Successful CT guided core biopsy left kidney. D/ / Newton Sánchez MD / Newton Sánchez MD Interpreting Provider: Newton Sánchez MD Insertion Non-Tunneled Catheter 03/07/17 00:00 IMPRESSION: Successful CT guided core biopsy left kidney. D/ / Newton Sánchez MD / Newton Sánchez MD Interpreting Provider: Newton Sánchez MD X-Ray 03/07/17 00:00 IMPRESSION: Right femoral dual-lumen CVC with tip extending to the level of the L1 vertebral body. D/ / 03/07/2017 15:32:30 Augusto Menchaca MD / colin Interpreting Provider: Augusto Menchaca MD Renal Biopsy CT 03/07/17 00:00 IMPRESSION: Successful CT guided core biopsy left kidney. D/ / Newton Sánchez MD / Newton Sánchez MD Interpreting Provider: Newton Sánchez MD Chest X-Ray 03/07/17 09:24 IMPRESSION: 1. Endotracheal tube tip approximately 4.9 cm above the ciara. 2. New bilateral airspace and interstitial opacities with associated pleural effusions. Findings suggest pulmonary edema. D/ / 03/07/2017 10:45:52 Olesya Thakur MD / Rula Taylor Interpreting Provider: Olesya Thakur MD Date of admission: 03/05/17 00:51 Primary care physician: Noris Mancuso CNP Consults: 03/05/17 11:24 Consult to Surgery [CONS] Routine Consulting Provider: [facility] Reason for Consult: concern for UGIB, positive stool occult blood Call Completed: Yes 03/06/17 00:45 Consult to Critical Care [CONS] Routine Consulting Provider: Pulm [facility] Reason for Consult: Pt is intubated Call Completed: No 03/06/17 10:46 Consult to Nephrology [CONS] Routine Consulting Provider: Kidney & HTN [facility] ALISHA Reason for Consult: worsening LUCILA Call Completed: Yes 03/07/17 11:19 Consult to Interventional Radiology [CONS] Routine Consulting Provider: Radiology Interventional Cols Reason for Consult: Kidney biopsy, HD catheter Call Completed: Yes 03/07/17 14:44 Consult to Physician [CONS] Routine Consulting Provider: Guicho Dove Reason for Consult: Possible vasculitis Time Notified: 14:01 Call Completed: Yes - Hospital Course Hospital course: Mr. Velázquez is a 52 year old male came with altered mental status with LUCILA and with concern for GI bleed . 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 - Time Spent with Patient Total time spent providing and/or coordinating discharge services: 45 minutes Greater than 30 minutes
[2017-03-09 02:41] LABS: Influenza A PCR Body Fluid NOT DETECTED; Influenza B PCR Body Fluid NOT DETECTED; RVP Body Fluid Source BAL LLL
[2017-03-09 05:20] LABS: HSV Source BAL LUL
[2017-03-09 08:17] LABS: Myeloperoxidase Ab 6 AU/mL (0-19); Serine Protease-3 Antibody 0 AU/mL (0-19)
[2017-03-09 08:18] LABS: ANA IgG by ELISA NONE DETECTED (None Detected)
[2017-03-09 08:33] LABS: GBM IgG Multiplex Bead Assay 0 AU/mL (0-19); Glomerular Basement Memb IgG NEGATIVE (Negative)
[2017-03-09 08:34] LABS: RSV PCR Body Fluid NOT DETECTED
[2017-03-10 16:02] LABS: QuantiFERON Mitogen minus NIL >10.00 IU/mL
[2017-03-11 14:44] LABS: QuantiFERON NIL 0.03 IU/mL; QuantiFERON-TB Gold In-Tube NEGATIVE (Negative)
== END 2017-03-08 10:45 | disposition short-term general hospital (02) | DRG 987 ==
LOC: 2ANU → SUATTDRO 03-05 00:51 → ICNU 03-05 01:57
PROVIDERS: ADMIT Internal Medicine; ATTEND Internal Medicine